=== PATIENT | female | born 1990 | race Caucasian/White ===

== ENCOUNTER 2018-08-24 10:17 | Outpatient (CLI) | payer OTHER, SELFPAY ==
[2016-01-24 07:14] VITALS: BMI 29.9
[2018-08-24 10:51] VITALS: BMI 27.8
--- NOTE | 2018-08-26 08:06 | OB.TRI.NOTE ---
History of Present Illness Date of Service: 08/24/18 Was patient seen by the physician?: No Reason For Visit: EXTENDEE MONITORING DUE TO FALL Date of Service: 08/24/18 Final LEONA: 12/20/18 Final LEONA Source: US <20 weeks Gestational age: 23 Weeks and 1 Days History of Present Illness: 28 yo female at 23 1/7 wk S/P fall. presents for monitoring. Allergies contact solution Allergy (Uncoded 01/24/16 07:43) Swelling NST - FHR Rate Baby A Baseline: 140-150s with quick variables to 100-120 Variability:: Minimal Accelerations:: None Decelerations:: Variable - quick return to baseline, under 10 sec each. to 100-120 NST Reactive:: Appropriate for gestational age, Non-Reactive FHR Category:: Category I Uterine Activity:: no UCs noted. Impression/Plan 28 yo female at 23 1/7 wk S/P fall. presents for monitoring. EFM reassuring and appropriate for EGA No regular UCs. Home after monitoring. OK to return to work.
--- NOTE | 2018-08-26 08:11 | OB.TRI.HP_ITS ---
History of Present Illness Date of Service: 08/24/18 Was patient seen by the physician?: No Reason For Visit: EXTENDEE MONITORING DUE TO FALL Date of Service: 08/24/18 Final LEONA: 12/20/18 Final LEONA Source: US <20 weeks Gestational age: 23 Weeks and 1 Days History of Present Illness: 28 yo female at 23 1/7 wk S/P fall. presents for monitoring. Allergies contact solution Allergy (Uncoded 01/24/16 07:43) Swelling NST - FHR Rate Baby A Baseline: 140-150s with quick variables to 100-120 Variability:: Minimal Accelerations:: None Decelerations:: Variable - quick return to baseline, under 10 sec each. to 100- 120 NST Reactive:: Appropriate for gestational age, Non-Reactive FHR Category:: Category I Uterine Activity:: no UCs noted. Impression/Plan 28 yo female at 23 1/7 wk S/P fall. presents for monitoring. EFM reassuring and appropriate for EGA No regular UCs. Home after monitoring. OK to return to work.
== END 2018-08-24 14:32 | disposition home or self-care (01) ==
LOC: WPOUT 10:25 → OBT 10:26
PROVIDERS: Referring Provider Obstetrics & Gynecology; Visit Provider Obstetrics & Gynecology
DX: Z04.3 Encounter for examination and observation following other accident (principal); O76 Abnormality in fetal heart rate and rhythm complicating labor and delivery; W19.XXXA Unspecified fall, initial encounter; Y93.9 Activity, unspecified; Y92.9 Unspecified place or not applicable; Z3A.23 23 weeks gestation of pregnancy
CPT/HCPCS: 59025; 59050; 99218; G0378

== ENCOUNTER 2018-12-16 07:00 | Inpatient (IN) | payer OTHER, SELFPAY ==
[2018-12-16 07:27] VITALS: BMI 30.7
[2018-12-16] MEDS: Lactated Ringers 1,000 ML 50 ML IV ×3 (07:45→13:27)
[2018-12-16] MEDS: Oxytocin 30 units/NS 500 ml 30 UNITS/500 ML IV.SOLN IV (07:58)
[2018-12-16 08:06] LABS: Absolute Lymphocyte Count 1.88 X10^3/ul (0.83-4.51); Absolute Neutrophil Count 6.4 X10^3/uL (2.0-7.7); Basophil# 0.02 X10^3/uL; Basophil% 0.2 % (0-1); Eosinophil# 0.26 X10^3/uL; Eosinophils% 2.7 % (0-5); Hematocrit 37.1 % (37-47); Hemoglobin 12.2 g/dl (12.0-15.0); Lymphocyte # 1.88 X10^3/ul (4.0); Lymphocyte % 19.6 % (19-41); Mean Corp Hgb Conc 32.9 g/gl (32-36); Mean Corpuscular Hgb 30.2 pg (27.0-32.0); Mean Corpuscular Volume 91.8 fL (81-99); Mean Platelet Vol. 11.3 fl (6.2-12.0); Monocyte% 9.4 % (0-10); Neutrophil % 66.6 % (47-70); POSITIVE COUNT NO; POSITIVE DIFFERENTIAL NO; POSITIVE MORPHOLOGY NO; Platelet Count 248 K/mm3 (150-450); RBC Distribution Width CV 13.6 % (11.6-14.6); RBC Distribution Width SD 45.2 fl (35.1-43.9); Red Blood Count 4.04 M/mm3 (4.2-5.4); White Blood Count 9.6 K/mm3 (4.4-11.0)
[2018-12-16] MEDS: Ondansetron 4 MG/2 ML Vial IV (08:53)
--- NOTE | 2018-12-16 09:34 | PN.OBGYN_ITS ---
Subjective: Feeling some contractions but not strongly. Objective: Afeb VSS FHR tracing CAT 1. - Physical Exam General: Alert, Oriented x3, Cooperative, No apparent distress Lungs: Clear to auscultation, Normal air movement Cardiovascular: Regular rate, Regular Rhythm Abdomen: Soft, Non Tender, Non-Distended, Gravid, Appropriate for Gestational Age Extremities: No edema, No Calf Tenderness Skin: No rashes Neurological: Neuro grossly intact Psych/Mental Status: Normal Affect Comment: CE /-2 Weight: 208 lb 6.4 oz Body Mass Index (BMI) 30.7 Intake and Output for Last 24 Hours 12/14/18 12/15/18 12/16/18 23:59 23:59 23:59 Intake Total 200 / 200 Output Total 100 / 100 Balance 100 / 100 Laboratory Tests Past 24 Hrs 12/16/18 12/16/18 07:45 07:45 WBC 9.6 RBC 4.04 L Hgb 12.2 Hct 37.1 MCV 91.8 MCH 30.2 MCHC 32.9 RDW 13.6 RDW Differential 45.2 H Plt Count 248 MPV 11.3 Immature Gran % (Auto) 1.500 H Neut % (Auto) 66.6 Lymph % (Auto) 19.6 [place] % (Auto) 9.4 Eos % (Auto) 2.7 Baso % (Auto) 0.2 Absolute Neuts (auto) 6.4 Absolute Lymphs (auto) 1.88 Total Counted Not Reportable Blood Type O POSITIVE Antibody Screen NEGATIVE Medical Necessity - Tobacco Use Smoking Status: Never smoker Assessment/Plan AROM performed with clear fluid noted. Will start ampicillin for GBS prophylaxis. Continue pitocin induction.
[2018-12-16] MEDS: fentaNYL-bupivacaine (epidural) 100 ML BAG EPIDURAL (12:01)
[2018-12-16] MEDS: Oxytocin 30 units/NS 500 ml 30 UNITS/500 ML IV.SOLN 334 UNITS IV (16:00)
--- NOTE | 2018-12-16 16:12 | PCM.OPRPT ---
Vaginal Delivery Maternal Presentation: Elective Induction 39+ weeks admitted for scheduled induction of labor Method of Induction: Pitocin Amniotic Membrane Rupture Type: Artificial Rupture of Membrane time: 1030 Amniotic Fluid Description: Clear Final LEONA: 12/20/18 Final LEONA Source: US <20 weeks Gestational age: 39 Weeks and 3 Days Date of Procedure: 12/16/18 Pre-Operative Diagnosis: Labor Post-Operative Diagnosis: same Surgery/ Procedure Performed: Spontaneous Vaginal Delivery Anesthesiologist: Scott Buenrostro Type of Anesthesia: Epidural Description of Procedure: Progressed to FFD pushed for less than 15 minutes to deliver a live female with apgars of 9/9. Placenta delivered spontaneously intact with a centrally located 3VC. Inspection revealed a small posterior vaginal first degree tear otherwise intact. The uterus contracted well. Presentation: Vertex Placental Delivery Description: Spontaneous Placenta Disposition: [facility] Percentage of Placenta Abruption: 0 Cord Vessel Description: 3 Vessels Cord Entanglement: None Drain: Hogan to straight drain Estimated Blood Loss: 300cc Infant A gender: Female (1 minute): 9 (5 minute): 9 Episiotomy Description: None Laceration: Midline, Vaginal Extension/lac, 1st degree Medications given after delivery: IV Pitocin Complications: None
--- NOTE | 2018-12-16 16:17 | DCINST_ITS ---
Discharge Diet: No Restrictions Discharge Activity: Return to Normal Activity, May Drive, May Shower Return to work on:: 12/18/18 May shower in (days): 0 May resume sexual activity in: 6 weeks Call your doctor if your incision/area has: Sudden Increased Bleeding, Increased Pain/ Swelling, Increased Redness, Foul Smelling Discharge Call your doctor if you observe: Fever of 101 or Higher, Inability to urinate, Inability to have a bowel movement, Using more than one pad per hour, Shortness of breath, Chest pain, Calf discomfort, Uncontrolled pain Additional Instructions: If you experience any of the following, contact your healthcare provider. * Bleeding that soaks a pad every hour for 2 hours * Fever 100.4 or higher * Unrelieved incision or abdominal pain * Swelling, redness, discharge or bleeding from your incision or episiotomy site * Your incision begins to separate * Problems urinating (including inability to urinate or burning while urinating). * Visual changes * Severe headache * Flu-like symptoms * Pain or redness in one of both of your breasts * Pain, warmth, tenderness or swelling in your legs, especially the calf area * Frequent nausea and vomiting * Symptoms of depression or anxiety If you experience any of the following, call 911 or go to the nearest Emergency Room. * Chest pain * Problems breathing * Seizure activity * Partial or complete paralysis of a body part, slurred speech, weakness or drooping of the face, or a sudden inability to walk or hold your balance Allergies/Adverse Reactions: Allergies contact solution Allergy (Mild, Uncoded 12/16/18 07:27) Swelling Medications to take at Discharge Clobetasol Propionate 1 MISCELL. DAILY 01/24/16 Vit No.130/Iron/Folic [ Tablet] 1 each PO DAILY 01/24/16 Ibuprofen [Motrin] 600 mg PO Q6H PRN PRN #30 tab 12/16/18 The following prescriptions were given: Ibuprofen [Motrin] 600 mg PO Q6H PRN PRN #30 tab PRN Reason: pain or cramping Please Follow Up With: Yousuf Little MD When: 6 weeks Primary Care Physician: Care Physician,No Primary [Primary Care Provider] - Test Results: Test results from this visit will be discussed in further detail at your follow- up appointment, if applicable. Proposed Discharge Date: 12/18/18
[2018-12-16] MEDS: Oxytocin 30 units/NS 500 ml 30 UNITS/500 ML IV.SOLN 167 UNITS IV (16:34)
[2018-12-16 20:00] VITALS: BP 125/63; PULSE 99; RESP 17; TEMP 37.1
[2018-12-16] MEDS: Acetaminophen 500 MG Tablet 1000 MG PO (21:22)
[2018-12-16 23:15] VITALS: BP 110/65; PULSE 78; RESP 17
[2018-12-16] MEDS: Ibuprofen 600 MG Tablet PO (23:20)
[2018-12-17 02:34] VITALS: BP 99/71; PULSE 80; RESP 18; TEMP 36.5
[2018-12-17 06:35] VITALS: BP 97/48; PULSE 82; RESP 18; TEMP 36.2
[2018-12-17 07:07] LABS: Hematocrit 35.2 % (37-47); Hemoglobin 11.5 g/dl (12.0-15.0); Mean Corp Hgb Conc 32.7 g/gl (32-36); Mean Corpuscular Hgb 30.1 pg (27.0-32.0); Mean Corpuscular Volume 92.1 fL (81-99); Mean Platelet Vol. 11.2 fl (6.2-12.0); Platelet Count 224 K/mm3 (150-450); RBC Distribution Width CV 13.9 % (11.6-14.6); RBC Distribution Width SD 47.1 fl (35.1-43.9); Red Blood Count 3.82 M/mm3 (4.2-5.4); White Blood Count 12.5 K/mm3 (4.4-11.0)
[2018-12-17 07:12] LABS: Scan Indicated on CBC? Y/N NO
--- NOTE | 2018-12-17 07:59 | PCM.PN.OB ---
Subjective: Afeb VSS Hgb stable on PP day#1. Objective: Afeb VSS - Physical Exam General: Alert, Oriented x3, Cooperative, No apparent distress Abdomen: Soft, Non Tender, Non-Distended Extremities: No edema Skin: No rashes Neurological: Neuro grossly intact Psych/Mental Status: Normal Affect Comment: Lochia light Vital Signs Temp Pulse Resp BP 97.1 F L 82 18 97/48 L 12/17/18 06:35 12/17/18 06:35 12/17/18 06:35 12/17/18 06:35 Oxygen Delivery Method Room Air Weight: 208 lb 6.4 oz Body Mass Index (BMI) 30.7 Intake and Output for Last 24 Hours 12/15/18 12/16/18 12/17/18 23:59 23:59 23:59 Intake Total 2500 / 2500 Output Total 3750 / 3750 Balance -1250 / -1250 Laboratory Tests Past 24 Hrs 12/16/18 12/16/18 12/17/18 07:45 07:45 06:30 WBC 9.6 12.5 H RBC 4.04 L 3.82 L Hgb 12.2 11.5 L Hct 37.1 35.2 L MCV 91.8 92.1 MCH 30.2 30.1 MCHC 32.9 32.7 RDW 13.6 13.9 RDW Differential 45.2 H 47.1 H Plt Count 248 224 MPV 11.3 11.2 Immature Gran % (Auto) 1.500 H Neut % (Auto) 66.6 Lymph % (Auto) 19.6 [place] % (Auto) 9.4 Eos % (Auto) 2.7 Baso % (Auto) 0.2 Absolute Neuts (auto) 6.4 Absolute Lymphs (auto) 1.88 Total Counted Not Reportable Blood Type O POSITIVE Antibody Screen NEGATIVE Medical Necessity - Tobacco Use Smoking Status: Never smoker Assessment/Plan Doing well on PP day#1. Hgb stable. Would like discharge home after 24 hours post delivery. If baby cleared by peds will discharage to home. Home going instructions and warnings given.
--- NOTE | 2018-12-17 08:01 | PCM.DC.SUM ---
Discharge Date and Diagnosis Date of Admission: 12/16/18 Date of Discharge: 12/17/18 - Primary Discharge Diagnosis S/P Hospital Course and Treatment Operations: None Procedures: - - Pitocin induction, epidural, Summary of Care Provided: The patient is a 28 year old F [admitted for elective induction of labor. Progressed to FD and had uncomplicated vaginal delivery. Discharged home on PP day#1. - Physical Exam Vital Signs Temp Pulse Resp BP 97.1 F L 82 18 97/48 L 12/17/18 06:35 12/17/18 06:35 12/17/18 06:35 12/17/18 06:35 Oxygen Delivery Method Room Air Weight: 208 lb 6.4 oz Body Mass Index (BMI) 30.7 Intake and Output for Last 24 Hours 12/15/18 12/16/18 12/17/18 23:59 23:59 23:59 Intake Total 2500 / 2500 Output Total 3750 / 3750 Balance -1250 / -1250 Laboratory Tests Past 24 Hrs 12/16/18 12/16/18 12/17/18 07:45 07:45 06:30 WBC 9.6 12.5 H RBC 4.04 L 3.82 L Hgb 12.2 11.5 L Hct 37.1 35.2 L MCV 91.8 92.1 MCH 30.2 30.1 MCHC 32.9 32.7 RDW 13.6 13.9 RDW Differential 45.2 H 47.1 H Plt Count 248 224 MPV 11.3 11.2 Immature Gran % (Auto) 1.500 H Neut % (Auto) 66.6 Lymph % (Auto) 19.6 [place] % (Auto) 9.4 Eos % (Auto) 2.7 Baso % (Auto) 0.2 Absolute Neuts (auto) 6.4 Absolute Lymphs (auto) 1.88 Total Counted Not Reportable Blood Type O POSITIVE Antibody Screen NEGATIVE Discharge Diet: No Restrictions Discharge Activity: Return to Normal Activity, May Drive, May Shower Return to work on:: 12/18/18 May shower in (days): 0 May resume sexual activity in: 6 weeks Call your doctor if your incision/area has: Sudden Increased Bleeding, Increased Pain/ Swelling, Increased Redness, Foul Smelling Discharge Call your doctor if you observe: Fever of 101 or Higher, Inability to urinate, Inability to have a bowel movement, Using more than one pad per hour, Shortness of breath, Chest pain, Calf discomfort, Uncontrolled pain Home Medications: Medications to take at Discharge Clobetasol Propionate 1 MISCELL. DAILY 01/24/16 Vit No.130/Iron/Folic [ Tablet] 1 each PO DAILY 01/24/16 Ibuprofen [Motrin] 600 mg PO Q6H PRN PRN #30 tab 12/16/18 Following Prescrptions Were Given to Patient: Ibuprofen [Motrin] 600 mg PO Q6H PRN PRN #30 tab PRN Reason: pain or cramping Primary Care Physician: Care Physician,No Primary [Primary Care Provider] - Please Follow Up With: Yousuf Little MD When: 6 weeks Disposition: Home Minutes spent on discharge:: 15 Patient Condition:: Good Medical Necessity - Tobacco Use Smoking Status: Never smoker Meaningful Use Info Meaningful Use Diagnoses (Choose all that apply): None applicable
[2018-12-17 09:00] VITALS: BP 110/69; PULSE 81; RESP 16; TEMP 35.9
[2018-12-17] MEDS: Ibuprofen 600 MG Tablet PO ×3 (09:06→23:52)
[2018-12-17 11:00] VITALS: BP 96/56; PULSE 77; RESP 18; TEMP 36.6
[2018-12-17] MEDS: Acetaminophen 500 MG Tablet 1000 MG PO (14:01)
[2018-12-17 16:27] VITALS: BP 102/66; PULSE 70; RESP 16; TEMP 36.4
[2018-12-17 20:30] VITALS: BP 104/75; PULSE 76; RESP 16; TEMP 36.9
[2018-12-18 02:15] VITALS: BP 109/72; PULSE 72; RESP 16; TEMP 36.5
[2018-12-18 08:07] VITALS: BP 116/73; PULSE 74; RESP 18; TEMP 36.6
--- NOTE | 2018-12-18 08:17 | PCM.PN.OB ---
Subjective: Doing well No complaints Objective: Afeb VSS - Physical Exam General: Alert, Oriented x3, Cooperative, No apparent distress Lungs: Clear to auscultation, Normal air movement Abdomen: Soft, Non Tender, Non-Distended, - - Fundus firm nontender Extremities: No edema Neurological: Neuro grossly intact Psych/Mental Status: Normal Affect Comment: Lochia light Vital Signs Temp Pulse Resp BP 97.8 F 74 18 116/73 12/18/18 08:07 12/18/18 08:07 12/18/18 08:07 12/18/18 08:07 Oxygen Delivery Method Room Air Weight: 208 lb 6.4 oz Body Mass Index (BMI) 30.7 Intake and Output for Last 24 Hours 12/16/18 12/17/18 12/18/18 23:59 23:59 23:59 Intake Total 2500 / 2500 Output Total 3750 / 3750 Balance -1250 / -1250 Medical Necessity - Tobacco Use Smoking Status: Never smoker Assessment/Plan Cleared for discharge home today. Discharge instructions given.
[2018-12-18] MEDS: Ibuprofen 600 MG Tablet PO (12:02)
[2018-12-18 12:21] VITALS: BP 116/72; PULSE 78; RESP 18; TEMP 36.5
--- NOTE | 2018-12-22 16:52 | NURSING ---
No answer on follow up call , voicemail left.
== END 2018-12-18 12:55 | disposition home or self-care (01) | DRG 807 ==
PROVIDERS: Admitting Provider Obstetrics & Gynecology; Referring Provider Obstetrics & Gynecology; Visit Provider Obstetrics & Gynecology
DX: O99.824 Streptococcus B carrier state complicating childbirth (principal); Z37.0 Single live birth; O70.0 First degree perineal laceration during delivery; Z3A.39 39 weeks gestation of pregnancy
CPT/HCPCS: 59025; 59050; 85025; 85027; 86850; 86900; 99218; J7120; G0378; J0290; J2405

== ENCOUNTER → 2020-06-14 15:06 | Outpatient (CLI) | payer BC, SELFPAY ==
[2020-06-14 15:02] VITALS: BMI 27.0
[2020-06-14 15:25] LABS: Absolute Lymphocyte Count 1.62 X10^3/uL (0.83-4.51); Absolute Neutrophil Count 4.4 X10^3/uL (2.0-7.7); Basophil# 0.04 X10^3/uL; Basophil% 0.6 % (0-1); Eosinophil# 0.24 X10^3/uL; Eosinophils% 3.4 % (0-5); Hematocrit 36.7 % (37-47); Hemoglobin 12.1 g/dL (12.0-15.0); Lymphocyte # 1.62 X10^3/ul (4.0); Lymphocyte % 23.1 % (19-41); Mean Corpuscular Hgb 30.4 pg (27.0-32.0); Mean Corpuscular Volume 92.2 fL (81-99); Mean Platelet Vol. 10.8 fl (6.2-12.0); NRBC Flagged by Analyzer 0 % (0-5); Neutrophil # 4.38 X10^3/uL (2.7-7.7); Neutrophil % 62.5 % (47-70); Platelet Count 205 K/mm3 (150-450); RBC Distribution Width CV 13.2 % (11.6-14.6); RBC Distribution Width SD 44.4 fl (35.1-43.9); Red Blood Count 3.98 M/mm3 (4.2-5.4)
[2020-06-14 15:57] LABS: Thyroid Stim Hormone (TSH) 8.43 uIU/mL (0.358-3.74)
[2020-06-14 17:41] LABS: Amphetamine Urine VISTA NEGATIVE (<1000 ng/mL); Barbiturate Urine VISTA NEGATIVE (< 200 ng/mL); Benzodiazepine Urine VISTA NEGATIVE (< 200 ng/mL); Cocaine Urine VISTA NEGATIVE (< 300 ng/mL); Ecstacy Urine VISTA NEGATIVE (< 500 ng/mL); Methadone Urine VISTA NEGATIVE (< 300 ng/mL); PCP Urine VISTA NEGATIVE (< 25 ng/mL); THC Urine VISTA NEGATIVE (< 50 ng/mL); Vista UDS pH Range 6
[2020-06-15 02:34] LABS: Rapid Plasmin Reagin (RPR) NONREACTIVE (NONREACTIVE)
[2020-06-15 09:00] LABS: HIV - WCH Non-Reactive (Nonreactive); Hepatitis B Surface Antigen Non-Reactive (Nonreactive); Hepatitis C Antibody Non-Reactive (Nonreactive); Rubella IgG Reactive (Nonreactive)
[2020-06-17 03:06] LABS: Chlamydia By Nucleic Acid AMP Negative (Negative)
[2020-06-17 15:08] LABS: Gonococcus By Nucleic Acid AMP Negative (Negative)
== END ==
PROVIDERS: Referring Provider Obstetrics & Gynecology; Visit Provider Obstetrics & Gynecology
DX: Z34.90 Encounter for supervision of normal pregnancy, unspecified, unspecified trimester (principal)
CPT/HCPCS: 36415; 80307; 84443; 85025; 86592; 86703; 86762; 86803; 86850; 86900; 86901; 87086; 87088; 87340; 87491; 87591

== ENCOUNTER → 2020-06-20 16:29 | Outpatient (CLI) | payer BC, SELFPAY ==
[2020-06-20 15:41] VITALS: BMI 26.6
[2020-06-20 18:35] LABS: ALB/GLOB Ratio 0.9 RATIO (0.9-2.4); AST(SGOT) 12 U/L (15-37); Alanine Aminotransfer ALT/SGPT 16 U/L (13-56); Albumin, Serum 3.7 g/dL (3.2-5.0); Alkaline Phosphatase 62 U/L (45-117); Anion Gap 8 (5-15); BUN 7 mg/dL (7-18); BUN/Creat Ratio 14.9 RATIO (10-20); Calcium,Total 8.5 mg/dL (8.5-10.1); Chloride 104 mmol/L (98-107); Creatinine, Serum 0.47 mg/dL (0.55-1.02); EST Glomerular Filtration Rate 165 mL/min (>60); Est Glom Filt Rate - Afr Amer 200 mL/min (>60); Free T3 2.6 pg/mL (2.18-3.98); Globulin 3.9 g/dL (2.2-4.2); Glucose 74 mg/dL (74-106); Potassium 3.5 mmol/L (3.5-5.1); Protein, Total 7.6 g/dL (6.4-8.2); Sodium Level 137 mmol/L (136-145); T4 Free Direct 0.77 ng/dL (0.76-1.46); Thyroid Stim Hormone (TSH) 6.69 uIU/mL (0.358-3.74)
[2020-06-22 16:09] LABS: Thyroid Peroxidase AB > 600 IU/mL (0-34)
[2020-06-22 18:28] LABS: Thyroglobulin Antibody < 1.0 IU/mL (0.0-0.9)
== END ==
PROVIDERS: PCP Internal Medicine; Referring Provider Internal Medicine; Visit Provider Internal Medicine
DX: O99.281 Endocrine, nutritional and metabolic diseases complicating pregnancy, first trimester (principal); E07.9 Disorder of thyroid, unspecified; Z3A.10 10 weeks gestation of pregnancy
CPT/HCPCS: 36415; 80053; 84439; 84443; 84481; 86376; 86800

== ENCOUNTER → 2020-06-28 09:17 | Outpatient (CLI) | payer BC, SELFPAY ==
[2020-06-20 15:41] VITALS: BMI 26.6
--- NOTE | 2020-06-28 09:20 | US_ITS ---
STUDY: THYROID ULTRASOUND REASON FOR EXAM: Female, 29 years old. ABNORMAL THYROID TECHNIQUE: Ultrasound evaluation of the thyroid was performed with real-time and static montemayor-scale imaging. COMPARISON: None. FINDINGS: RIGHT LOBE: The right lobe of the thyroid gland is enlarged and measures 5.7 cm x 2.15 x 2.7 cm. There is a heterogeneous echotexture. Multiple hypoechoic nodules are seen throughout the lobe. The largest is in the lower pole and measures 1.8 cm x 1.8 cm by 1.2 cm. This is a solid nodule with perinodular vascularity. A biopsy is recommended. LEFT LOBE: The left lobe of the thyroid gland is enlarged and measures 5.6 x 2 x 2.9 cm x 3.2 cm. There is a heterogeneous echotexture. Multiple nodules are seen. The largest measures 1.6 cm x 1.87 x 1.5 cm. This is in the lower pole is a complex cystic nodule. Biopsy is recommended. ISTHMUS: The isthmus measures 5 mm. The regional lymph nodes are normal. US/Thyroid IMPRESSION: Heterogeneous enlargement of the thyroid gland with bilateral dominant nodules as described. Biopsy is recommended. Electronically Signed: Zane Bain, at 14:53 EST , Service support ,
== END ==
PROVIDERS: PCP Internal Medicine; Referring Provider Internal Medicine; Visit Provider Internal Medicine
DX: E07.9 Disorder of thyroid, unspecified (principal); R94.6 Abnormal results of thyroid function studies
CPT/HCPCS: 76536

== ENCOUNTER → 2020-07-28 11:06 | Outpatient (CLI) | payer BC, SELFPAY ==
[2020-07-28 10:04] VITALS: BMI 27.4
[2020-07-28 13:11] LABS: Free T3 2.5 pg/mL (2.18-3.98); Thyroid Stim Hormone (TSH) 3.77 uIU/mL (0.358-3.74)
--- NOTE | 2020-07-28 15:20 | ASPS_PTH ---
PATIENT: DAVID WANG LOC: [facility] U#:[id number] AGE/SX: 34/F ROOM: RE07/28/[address]: Dr. Luis Carlos Puentes MD : 1990 BED: DIS: SPEC #: [id number] RECD: 07/28/20 16:02 STATUS: EM REQ #: [id number] YOJANA: 07/28/20 15:[address]: Ramos Hall DEPT: CYTOLOGY RECD BY: Mena Lee ENTERED: 07/31/20 10:06 SP TYPE: ASPIRATION OTHR DR: MD Dr. Ramos Gandhi MD Dr. Toni King, MD Tissues: A - Thyroid gland, NOS B - Thyroid gland, NOS Procedures: Special Stain Group II Cytology Other Comments: @ Ordering doctor for SSII edited from to @ by PRISCILA at 07/31/20 1032 @ Ordering doctor for CYOTHER edited from to @ by PRISCILA at 07/31/20 1032 @ Submitting doctor edited from to @ sadiq FRANCOIS at 07/31/20 1032 HEADER OPERATION: Bilateral thyroid FNA PRE-OP DIAGNOSIS: Bilateral thyroid nodules TISSUE SUBMITTED: A - Right thyroid slides x6, B - Left thyroid slides x4, C - Left thyroid fluid for cytology DIAGNOSIS CYTOLOGY A. Right thyroid nodule, FNA (smears): Consistent with benign follicular/colloid nodule. Adequate for evaluation. B. Left thyroid nodule, FNA (smears): A few atypical follicular cells of undetermined significance in the background of cystic follicular nodule. Adequate for evaluation. See comment. C. Left thyroid nodule fluid, FNA (cytospin and cell block): Consistent with cyst contents. See comment. SJ:rg 08/01/2020 COMMENT C. The specimen predominantly consists of macrophages. Correlation with clinical, radiologic findings and appropriate follow up are necessary. Case has been reviewed in consultation with Dr. Dinh who concurs with the above diagnosis. IDC:AM CYTOLOGY STUDY Slides are reviewed. CYTOLOGY GROSS A - Received are six smears labeled with the patient's name and designated per the requisition as right thyroid. Submitted for staining. B - Received are four smears labeled with the patient's name and designated per the requisition as left thyroid. Submitted for staining. C - Received is 1 ml of red, cloudy fluid labeled with the patient's name and and designated per the requisition as left thyroid. Submitted for cytology preparation including cell block. / chrystal 07/31/2020 TC:5 CPT: 57383 x2, 06967, 96191
== END ==
PROVIDERS: PCP Internal Medicine; Referring Provider Internal Medicine Endocrinology, Diabetes & Metabolism; Visit Provider Internal Medicine Endocrinology, Diabetes & Metabolism
DX: E04.2 Nontoxic multinodular goiter (principal)
CPT/HCPCS: 36415; 84439; 84443; 84481; 88161; 88313

== ENCOUNTER → 2020-09-08 14:58 | Outpatient (CLI) | payer BC, SELFPAY ==
[2020-09-08 14:25] VITALS: BMI 28.3
[2020-09-08 17:03] LABS: T4 Free Direct 1.16 ng/dL (0.76-1.46); Thyroid Stim Hormone (TSH) 0.56 uIU/mL (0.358-3.74)
== END ==
PROVIDERS: PCP Internal Medicine; Visit Provider Internal Medicine Endocrinology, Diabetes & Metabolism
DX: O99.280 Endocrine, nutritional and metabolic diseases complicating pregnancy, unspecified trimester (principal); E03.9 Hypothyroidism, unspecified; Z3A.00 Weeks of gestation of pregnancy not specified
CPT/HCPCS: 36415; 84439; 84443

== ENCOUNTER → 2020-10-04 11:19 | Outpatient (CLI) | payer BC, SELFPAY ==
[2020-09-08 14:25] VITALS: BMI 28.3
[2020-10-04 11:49] LABS: Absolute Lymphocyte Count 1.27 X10^3/uL (0.83-4.51); Absolute Neutrophil Count 5.1 X10^3/uL (2.0-7.7); Basophil# 0.05 X10^3/uL; Basophil% 0.7 % (0-1); Eosinophil# 0.25 X10^3/uL; Eosinophils% 3.3 % (0-5); Hematocrit 34.5 % (37-47); Hemoglobin 10.9 g/dL (12.0-15.0); Lymphocyte # 1.27 X10^3/ul (4.0); Lymphocyte % 16.9 % (19-41); Mean Corp Hgb Conc 31.6 g/dL (32-36); Mean Corpuscular Hgb 29.6 pg (27.0-32.0); Mean Corpuscular Volume 93.8 fL (81-99); Mean Platelet Vol. 11.2 fl (6.2-12.0); Monocyte# 0.72 X10^3/uL; Monocyte% 9.6 % (0-10); NRBC Flagged by Analyzer 0 % (0-5); Neutrophil % 67.6 % (47-70); Platelet Count 206 K/mm3 (150-450); RBC Distribution Width CV 12.4 % (11.6-14.6); RBC Distribution Width SD 42.8 fl (35.1-43.9); Red Blood Count 3.68 M/mm3 (4.2-5.4); White Blood Count 7.5 K/mm3 (4.4-11.0)
[2020-10-04 12:00] LABS: Glucose Challenge Gest 1H 50g 89 mg/dL (70-140)
== END ==
PROVIDERS: PCP Internal Medicine; Referring Provider Obstetrics & Gynecology; Visit Provider Obstetrics & Gynecology
DX: Z34.90 Encounter for supervision of normal pregnancy, unspecified, unspecified trimester (principal); Z13.1 Encounter for screening for diabetes mellitus
CPT/HCPCS: 36415; 82950; 85025

== ENCOUNTER → 2020-11-17 16:24 | Outpatient (CLI) | payer BC, SELFPAY ==
[2020-11-17 15:38] VITALS: BMI 30.2
[2020-11-17 17:10] LABS: Absolute Lymphocyte Count 2.21 X10^3/uL (0.83-4.51); Absolute Neutrophil Count 6.9 X10^3/uL (2.0-7.7); Basophil# 0.07 X10^3/uL; Basophil% 0.6 % (0-1); Eosinophil# 0.31 X10^3/uL; Eosinophils% 2.8 % (0-5); Hematocrit 34.8 % (37-47); Hemoglobin 10.6 g/dL (12.0-15.0); Lymphocyte # 2.21 X10^3/ul (0.83-4.51); Lymphocyte % 20.3 % (19-41); Mean Corp Hgb Conc 30.5 g/dL (32-36); Mean Corpuscular Hgb 28.2 pg (27.0-32.0); Mean Corpuscular Volume 92.6 fL (81-99); Mean Platelet Vol. 11.1 fl (6.2-12.0); Monocyte# 1.17 X10^3/uL; Monocyte% 10.7 % (0-10); NRBC Flagged by Analyzer 0 % (0-5); Neutrophil # 6.93 X10^3/uL (2.7-7.7); Neutrophil % 63.8 % (47-70); Platelet Count 281 K/mm3 (150-450); RBC Distribution Width CV 12.6 % (11.6-14.6); Red Blood Count 3.76 M/mm3 (4.2-5.4); White Blood Count 10.9 K/mm3 (4.4-11.0)
[2020-11-17 17:35] LABS: T4 Free Direct 0.85 ng/dL (0.76-1.46); Thyroid Stim Hormone (TSH) 3.12 uIU/mL (0.358-3.74)
== END ==
PROVIDERS: PCP Internal Medicine; Referring Provider Obstetrics & Gynecology; Visit Provider Obstetrics & Gynecology
DX: E06.3 Autoimmune thyroiditis (principal)
CPT/HCPCS: 36415; 84439; 84443; 85025

== ENCOUNTER → 2020-12-15 | Outpatient (CLI) | payer BC, SELFPAY ==
[2020-12-15 13:38] VITALS: BMI 31.0
== END | disposition home or self-care (01) ==
LOC: LABSPEC 16:47
PROVIDERS: PCP Internal Medicine; Visit Provider Obstetrics & Gynecology
DX: Z34.83 Encounter for supervision of other normal pregnancy, third trimester (principal)
CPT/HCPCS: 87077; 87081; 87186

== ENCOUNTER → 2021-01-05 18:27 | Outpatient (CLI) | payer BC, SELFPAY ==
[2021-01-05 10:03] VITALS: BMI 31.0
--- NOTE | 2021-01-05 18:34 | US_ITS ---
STUDY: Ultrasound OB Biophysical Profile REASON FOR EXAM: Female, 30 years old WELL BEING -- DEC MVMT TECHNIQUE: Transabdominal PRIOR ULTRASOUND: None. FINDINGS: There is a single intrauterine fetus. The fetus is in a cephalic presentation. There is demonstrated cardiac activity with a heart rate of 157 bpm. There is a normal amniotic fluid volume. The largest amniotic fluid pocket measures 11.7 cm. The amniotic fluid index (SARAHI) is 17.1 cm. The placenta is anterior. BIOPHYSICAL PROFILE (BPP): 02/11 -- Breathin/2. -- Movement: 2/2. -- Tone: 2/2. --SARAHI: 2/2. US/Biophysical Prof W/O Non Stres IMPRESSION: Normal BPP. Electronically Signed: Mikel Duron MD at 19:48 EDT Tel , Service support ,
== END ==
PROVIDERS: PCP Internal Medicine; Visit Provider Obstetrics & Gynecology
DX: O36.8190 Decreased fetal movements, unspecified trimester, not applicable or unspecified (principal); Z3A.00 Weeks of gestation of pregnancy not specified
CPT/HCPCS: 76819

== ENCOUNTER 2021-01-06 07:00 | Inpatient (IN) | payer BC, SELFPAY ==
[2021-01-05 10:03] VITALS: BMI 31.0
[2021-01-06] VITALS (39 sets, daily range): BP systolic 94–125; BP diastolic 50–73; PULSE 71–100; RESP 14–16; TEMP 36.3–37.7; O2SAT 97–100; BMI 31.2
--- NOTE | 2021-01-06 07:29 | HP.PCM_ITS ---
History and Physical Date of Admission: 01/06/21 [facility]'s [id number] [place] [address] [phone] OFFICE VISITDate of Service: 01/05/21 MR#:[id number]:[id number]: DAVID WANG ERep #:[id number] Provider:Dr. Bette Mike, EVERTge/Sex: 30/F [facility] Vital Signs 01/05/21 10:02 01/05/21 10:03 Height 5 ft 9 in Weight: 212 lb BMI 31.3 31.0 BP 102/70 Intake Visit Reasons: 39 WK OB Chief Complaint: est ob Visitor Services Assistant Required: No Is patient in pain?: No Allergies contact solution Allergy (Mild, Uncoded 12/15/20 13:37) Swelling Medications clobetasol 1 MISCELL. DAILY 01/24/16 [History Confirmed 01/05/21] vit no.[id number] 1 ea PO DAILY 01/24/16 [History Confirmed 01/05/21] lactobacillus combination no.8 3 billion cell capsule 3,000 mmu cells PO DAILY 06/20/20 [History Confirmed 01/05/21] levothyroxine 125 mcg tablet 125 mcg PO DAILY #30 tab 07/28/20 [Rx Confirmed 01/05/21] Last Menstral Period: 04/02/20 Zika: Zika virus screening: Negative : No PFSH PFSH Medical History H/O hemorrhage, currently Rhea's thyroiditis History of anemia Hypothyroid in , antepartum Multiple thyroid nodules Supervision of normal Thyroid dysfunction Thyroid nodule Surgical History Status post fine needle aspiration (~07/2020) Family History Grandmother Diabetes Myocardial infarction, Onset Age: 72 Grandfather Diabetes Father Hypertension Grandmother Heart disease Aunt Thyroid disorder Social History adopted: No household members: family housing: house number of children: 2 current occupational status: employed current occupation: [employer] sexually active: Yes Smoking Status: Never smoker second hand exposure: No alcohol intake: never substance use type: does not use seatbelt use: always do you feel safe at home: Yes additional social history: - Kingsley Pregancy History 3 Elective abortions Hx Para 2 Spontaneous abortions Hx # Term Pregnancies Ectopic pregnancies Hx # Pregnancies Multiple births # of living children 2 Past Pregnancies Del. Date Name GA/Weeks Outcome Route Bth Weight Gen Labor Lgth Anesthesia Del Locatn Provider FOB 01/24/16 Pardeep 41 live - full term 8lbs 12oz Female 10 hours epidural [facility] Dr. Little 12/16/18 Katherin 39 live - full term 7 lbs 13oz Female 9 hours epidural [facility] Dr. Little Delivery Date: 01/24/16 PPH- had to get IM methergine Izabella Almazan Delivery Date: 12/16/18 no complications Izabella Almazan HPI 39 WK OB Details: DAVID WANG is a 30 year old who presents for routine OB visit. Upon evaluation she is having persistent decreased movement over the last few days, and had borderline NST in the office. OB Visit LEONA Calculator Estimated Delivery Date Method Current Current Estimate 01/07/21 LMP (Certain) 39w 5d Other Estimates 01/08/21 Ultrasound #1 39w 4d Expected Delivery Route/Plan Labor Preferences- labor support person: Kingsley labor intervention preferences: open to standard interventions pain management options preferred: epidural, may try to go natural but has had epidural with other deliveries cut cord/dad catch: both : [] PP control planned: [] discussed possible routes of delivery and associated risks: discussed possible delivery modalities and possible indications for each including R/B/A of , VAVD, FAVD, and CS. questions answered. special requests: [] Specific Issue/Plans flu vaccine: given tdap vaccine: given rhogam: na LARC form signed: declined movement and labor precautions reviewed. Problem list reviewed and updated with the most current plan of care details and appropriate orders placed. Relevant counseling for the gestational age provided. Continue routine care and follow up unless otherwise noted in visit notes/problem list details Initial Weight: 180 lb Date EGA Weight BP Urine Prot Glucose FHR FuHt Pres Dilation Effaced St Visit Note 06/14/20 10w 3d 180 lb 8 oz (+8 oz) 120/80 160 GP - CRL 30mm consistent with LMP. 07/12/20 14w 3d 182 lb 4 oz (+2 lb 4 oz) 118/80 Negative Negative 170 GP - no cramping or bleeding. PRR. Discussed COVID vaccine in . 08/10/20 18w 4d 187 lb (+7 lb) 120/74 Negative Negative 139 MH-No Vb, LOF. US anatomy next week 09/08/20 22w 5d 192 lb (+12 lb) 102/58 Negative Negative 140 SM- no vb lof good fm no regular ctx 10/04/20 26w 3d 198 lb (+18 lb) 102/70 Negative Negative 145 26 GP - no LOF, VB, DFM, ctx. Passed GCT. TDAP given. Discussed anemia. Considering Sirael for name, but undecided because likes name with clear gender. 10/20/20 28w 5d 202 lb 2 oz (+22 lb 2 oz) 100/68 Negative Negative 145 28 GP - no LOF, VB, DFM, ctx. LARC form signed. Going to a concert tonight with another couple. 11/02/20 30w 4d 204 lb 8 oz (+24 lb 8 oz) 130/80 Negative Negative 140 30 GP - no ctx, LOF, VB, DFM. Denies complaints. 11/17/20 32w 5d 207 lb (+27 lb) 114/66 Negative Negative 140 33 SM- no vb lof good fm no regula rctx tsh and t4 ordered, cbc 12/01/20 34w 5d 210 lb (+30 lb) 118/62 Negative Negative 140 34 GP - no LOF, VB, DFM, ctx. Discussed labor preferences and routes of delivery 12/15/20 36w 5d 210 lb 6 oz (+30 lb 6 oz) 110/70 140 36 Cephalic 2 50 -2 GP - no LOF, VB, DFM, ctx. GBS today. Daughter's birthday is this weekend. 12/21/20 37w 4d 212 lb (+32 lb) 112/76 145 37 Unstable SM- no vb lof good fm no regular ctx 12/28/20 38w 4d 211 lb 2 oz (+31 lb 2 oz) 114/70 Negative Negative 135 38 Cephalic 3 50 -3 GP - no LOF, VB, dFM, ctx. Membranes swept today. 01/05/21 39w 5d 212 lb (+32 lb) 102/70 Negative Negative 140 4 50 -2 SM- no vb lof dec fm the last few days, minimal today. irregular ctx ACOG First Trimester First Trimester: Desire for , Alcohol, Tobacco Cessation, Illicit/Recreational Drug/Substance Use, Intimate Partner Violence, Barriers to care, Unstable Housing, Communication Barriers, Environmental/Work Hazards, Anticipated Course of Care, Toxoplasmosis Precations, Use of Any medications, Sexual activity, Exercise, Dental Care, Sauna/Hot tub use, Seat Belt use, Childbirth classes/Hospital facilities, , Travel, Indications for Ultrasound and Screening for Aneuploidy Second Trimester Second Trimester: Signs and Symptoms of Labor, Selecting a care provider, Reproductive Life Planning & Contreception, Care Planning, Tobacco Cessation, Depression/Anxiety and Intimate Partner Violence Third Trimester Third Trimester: Pain Management Plans, Labor support person(s), Immediate Larc, Movement Monitoring and Infant Feeding Yes ; Discussed Trial of Labor after Counseling and Discussed Circumcision preference Diagnostics Diagnostics Diagnostics: Glucose 1 Hr 50 gm 89 mg/dL (70-140) Hgb 10.6 g/dL (12.0-15.0) L Hct 34.8 % (37-47) L Details: HIV: Urine Culture: Sequential Screen: NIPT Screen: ROS Const Reports system reviewed and no additional complaints, except as documented Card Reports system reviewed and no additional complaints, except as documented Resp Reports system reviewed and no additional complaints, except as documented GI Reports system reviewed and no additional complaints, except as documented and Reports nausea Reports system reviewed and no additional complaints, except as documented Musc Reports system reviewed and no additional complaints, except as documented Exam Const General: cooperative, healthy appearing, comfortable and anxious [facility] Head: normal to inspection Nose: external nose normal Face and sinus: normal facial exam Neck Neck: normal visual inspection, full ROM and no lymphadenopathy Thyroid: thyroid normal Chest Chest palpation & inspection: normal inspection of the chest Resp Effort & Inspection: normal respiratory effort GI Inspection: normal to inspection Palpation: soft and other (gravid uterus) Other: infant vertex and appropriate size for gestational age Other: Cervical Exam: Extrem General: pedal edema Office Procedures Non-stress Test Non-Stress Test Indications for Monitoring: Yes decreased movement Heart Rate Baseline: 130 Heart Rate Variability: moderate Movement: Absent Heart Rate Accelerations: Present Decelerations: Absent Contractions: Absent Impression: Yes Reactive Non-Stress Test Category 1 (borderline criteria) Results POC Urinalysis 2 Dip (Clinic) Office Urine Glucose Negative Last Edit by Alma Delia Varghese on 01/05/21 10:05 Office Urine Protein Negative Last Edit by Alma Delia Varghese on 01/05/21 10:05 Coding Level of Care Code OB Routine Diagnoses Positive GBS test B95.1 Multiple thyroid nodules E04.2 Iron (Fe) deficiency anemia D50.9 Iron deficiency anemia type: unspecified iron deficiency 35 weeks gestation of Z3A.35 Rhea's thyroiditis E06.3 Hypothyroid in , antepartum O99.280; E03.9 H/O hemorrhage, currently O09.299 Supervision of normal Z34.83 Normal : other normal Trimester: third trimester Z3A.39 Weeks of gestation: 39 weeks Decreased movements in third trimester O36.8130 CPT Codes Non-Stress Test (65740) Assessment and Plan Assessment and Plan (1) Positive GBS test: Status: Acute Comment: PCN in labor (2) Multiple thyroid nodules: Status: Acute (3) Iron (Fe) deficiency anemia: Status: Acute Qualifiers: Iron deficiency anemia type: unspecified iron deficiency Qualified Code(s): D50.9 - Iron deficiency anemia, unspecified (4) 35 weeks gestation of : Status: Acute Comment: electronic covid test ordered 12/05/20 (5) Rhea's thyroiditis: Status: Chronic Comment: synthroid (6) Hypothyroid in , antepartum: Status: Chronic Comment: follow labs every trimester (7) H/O hemorrhage, currently : Status: Acute Comment: received IM methergine after first delivery. No issues with second (8) Supervision of normal : Status: Acute Qualifiers: Normal : other normal Trimester: third trimester Qualified Code(s): Z34.83 - Encounter for supervision of other normal , third trimester Comment: PRR LEONA 01/07/21 boy PC: Araceli Roberto Spouse: Kingsley (9) : Status: Acute Qualifiers: Weeks of gestation: 39 weeks Qualified Code(s): Z3A.39 - 39 weeks gestation of Comment: declines genetic and carrier; NL anatomy (10) Decreased movements in third trimester: Status: Acute Comment: plan IOL today Orders: Orders: OB NST Today O36.8130 Plan - Dr. Bette Mike MD: Patient presents IOL, plan management for with pitocin/AROM. Pain management: plans epidural. GBS pos- PCN planned. Management of any complications: none I have reviewed the [facility] and made any clinically relevant updates. Plan Details Other Orders: Orders: POC Urinalysis 2 Dip (Clinic) Today
[2021-01-06] MEDS: Lactated Ringers 1,000 ML 50 ML IV (07:59)
[2021-01-06 08:08] LABS: Absolute Lymphocyte Count 2.27 X10^3/uL (0.83-4.51); Absolute Neutrophil Count 6.6 X10^3/uL (2.0-7.7); Basophil# 0.05 X10^3/uL; Basophil% 0.5 % (0-1); Eosinophil# 0.26 X10^3/uL; Eosinophils% 2.5 % (0-5); Hematocrit 31.4 % (37-47); Hemoglobin 9.9 g/dL (12.0-15.0); Lymphocyte # 2.27 X10^3/ul (0.83-4.51); Lymphocyte % 21.5 % (19-41); Mean Corp Hgb Conc 31.5 g/dL (32-36); Mean Corpuscular Hgb 27.5 pg (27.0-32.0); Mean Corpuscular Volume 87.2 fL (81-99); Mean Platelet Vol. 11.2 fl (6.2-12.0); Monocyte# 1.28 X10^3/uL; Monocyte% 12.1 % (0-10); NRBC Flagged by Analyzer 0 % (0-5); Neutrophil # 6.56 X10^3/uL (2.7-7.7); Neutrophil % 62.2 % (47-70); Platelet Count 335 K/mm3 (150-450); RBC Distribution Width CV 13.3 % (11.6-14.6); RBC Distribution Width SD 42.1 fl (35.1-43.9); White Blood Count 10.6 K/mm3 (4.4-11.0)
[2021-01-06] MEDS: Oxytocin 30 units/NS 500 ml 30 UNITS/500 ML IV.SOLN IV (09:07)
[2021-01-06] MEDS: Lactated Ringers 500 ML 999 ML IV ×2 (11:44→12:37)
[2021-01-06] MEDS: fentaNYL-bupivacaine (epidural) 100 ML BAG EPIDURAL (12:50)
[2021-01-06] MEDS: Lactated Ringers 1,000 ML 200 ML IV (15:24)
[2021-01-06] MEDS: Oxytocin 30 units/NS 500 ml 30 UNITS/500 ML IV.SOLN 334 UNITS IV (16:50)
[2021-01-06] MEDS: Methylergonovine 0.2 MG/ML Ampul IM (16:56)
--- NOTE | 2021-01-06 17:01 | OP.PCM_ITS ---
Assessment & Plan (1) Decreased movements in third trimester: COMMENT: plan IOL today (2) Positive GBS test: COMMENT: PCN in labor (3) 35 weeks gestation of : COMMENT: electronic covid test ordered 12/05/20 (4) Hypothyroid in , antepartum: COMMENT: follow labs every trimester (5) Supervision of normal : QUALIFIERS: Normal : other normal Trimester: third trimester Qualified Code(s): Z34.83 - Encounter for supervision of other normal , third trimester COMMENT: PRR LEONA 01/07/21 boy PC: Araceli Roberto Spouse: Kingslye (6) : QUALIFIERS: Weeks of gestation: 39 weeks Qualified Code(s): Z3A.39 - 39 weeks gestation of COMMENT: declines genetic and carrier; NL anatomy (7) Vaginal delivery: COMMENT: IOL dec fm SM 39 boy phu Maternal Data Information LEONA Calculator Estimated Delivery Date Method Current WG Current Estimate 01/07/21 LMP (Certain) 39w 6d Other Estimates 01/08/21 Ultrasound #1 39w 5d Vaginal Delivery Operative Information Date of Procedure: 01/06/21 Pre-Operative Diagnosis: IOL Post-Operative Diagnosis: same Surgery / Procedure Performed: Spontaneous Vaginal Delivery Type of Anesthesia: Epidural Special Medications: none Estimated Blood Loss: 100 Fluids Replaced: crystalloid Findings Description of Procedure: Patient began pushing and delivered the head in the MANFRED presentation. The head was delivered atraumatically . The anterior and posterior shoulders delivered without complication followed by the rest of the i nfant and the infant was placed on the maternal abdomen. Delayed cord clamping was employed for approximately 60 seconds. Cord was clamped and cut and gentle traction was applied to the cord and the placenta delivered spontaneously immediately following it was noted to be intact with three-vessel cord. The perineum and vagina were inspected and noted to have a very small first-degree perineal laceration that was repaired with a single [id number]-of-idkee 3-0 Vicryl Rapide. Patient had a history of hemorrhage and due to large size and placental size prophylactic Methergine was given.. EBL was 100 cc. Patient and infant tolerated delivery well. Presentation: RYAN Amniotic Membrane Rupture Type: Artificial Amniotic Fluid Description: Clear Placental Delivery Description: Spontaneous Placenta Disposition: [facility] Cord Vessel Description: 3 Vessels Cord Entanglement: None A Gender: Male Delayed Cord Clamping: Yes Post Vaginal Delivery Medications Given After Delivery: IV Pitocin Episiotomy Description: None Laceration: Perineal Extension/lac and 1st degree Complication Complications: None Procedures Urinary/Genital 52xxx-59xxx: [id number] Vaginal Delivery [facility]
--- NOTE | 2021-01-06 17:05 | PCM.DC ---
Discharge Instructions Diet Discharge Diet: No restrictions Activity Discharge Activity: Return to Normal Activity, May Not Drive (while taking narcotic pain medications.) and May Shower May resume sexual activity in: 4-6 weeks Dressing / Incision Call your doctor if your incision/area has: Continuous Slow Oozing, Sudden Increased Bleeding, Increased Pain/ Swelling, Increased Redness and Foul Smelling Discharge Follow Up Care Please Follow Up With: Bette Mike MD When: Call [phone] to make an appointment with your doctor in 6 weeks. If you had elevated blood pressure or 4th degree laceration, you will need to be seen in 2 weeks. Test Results: Test results from this visit will be discussed in further detail at your follow-up appointment, if applicable. Discharge Plan Admission Admit Date/Time: 01/06/21 07:00 Primary Reason for Your Visit: vaginal delivery Attending Provider: Bette Mike Primary Care Provider: Evelia Vickers Discharge Orders/Prescriptions Prescriptions: No Action Adult Probiotic 3 billion cell capsule 3,000 mmu cells PO DAILY RF: 0 vit [id number] 1 EACH tablet 1 ea PO DAILY RF: 0 clobetasol 50 ML solution 1 MISCELL. DAILY RF: 0 levothyroxine 125 mcg tablet 125 mcg PO DAILY Qty: 30 RF: 6 Referrals / Follow Up: Evelia Vickers MD [Primary Care Provider] - Bette Mike MD [STAFF PHYSICIAN] - Disposition Disposition (needs filled in before D/C Order can be placed): Home, Self Care
[2021-01-06] MEDS: 0.9% Saline Lock 10 ML Syringe IV (19:41)
[2021-01-06] MEDS: Naproxen 500 MG Tablet PO (19:41)
[2021-01-07] MEDS: Acetaminophen 500 MG Tablet 1000 MG PO ×2 (02:06→10:37)
[2021-01-07 03:19] VITALS: BP 95/52; PULSE 72; RESP 16; TEMP 36.3
--- NOTE | 2021-01-07 03:21 | NURSING ---
pt reports her BP is normally low. denies feeling dizzy or lightheaded.
[2021-01-07] MEDS: Levothyroxine 125 MCG Tablet PO (06:36)
[2021-01-07 07:54] VITALS: BP 105/63; PULSE 68; RESP 16; TEMP 36.7
[2021-01-07] MEDS: Naproxen 500 MG Tablet PO (12:43)
[2021-01-07 12:45] VITALS: BP 103/61; PULSE 58; RESP 16; TEMP 36.9
== END 2021-01-07 18:25 | disposition home or self-care (01) | DRG 807 ==
PROVIDERS: Admitting Provider Obstetrics & Gynecology; PCP Internal Medicine; Referring Provider Obstetrics & Gynecology; Visit Provider Obstetrics & Gynecology
DX: O36.8130 Decreased fetal movements, third trimester, not applicable or unspecified (principal); O70.0 First degree perineal laceration during delivery; O99.824 Streptococcus B carrier state complicating childbirth; O99.284 Endocrine, nutritional and metabolic diseases complicating childbirth; E06.3 Autoimmune thyroiditis; E04.2 Nontoxic multinodular goiter; O99.02 Anemia complicating childbirth; D50.9 Iron deficiency anemia, unspecified; Z20.822 Contact with and (suspected) exposure to COVID-19; Z79.890 Hormone replacement therapy; Z3A.39 39 weeks gestation of pregnancy; Z37.0 Single live birth
CPT/HCPCS: 59025; 59050; 85025; 86850; 86900; 86901; 87426; 99218; J7120; A4216; G0378

== ENCOUNTER → 2021-02-23 11:54 | Outpatient (CLI) | payer BC, SELFPAY ==
[2021-02-23 12:45] LABS: T4 Free Direct 1.28 ng/dL (0.76-1.46); Thyroid Stim Hormone (TSH) 0.11 uIU/mL (0.358-3.74)
[2021-02-27 16:50] LABS: HPV APTIMA, High Risk Negative (Negative)
== END ==
PROVIDERS: PCP Internal Medicine; Visit Provider Obstetrics & Gynecology
DX: E06.3 Autoimmune thyroiditis (principal); Z12.4 Encounter for screening for malignant neoplasm of cervix
CPT/HCPCS: 36415; 84439; 84443; 87624; 88175; G0145

== ENCOUNTER → 2021-03-13 14:26 | Outpatient (CLI) | payer BC, SELFPAY ==
--- NOTE | 2021-03-13 14:27 | US_ITS ---
STUDY: THYROID ULTRASOUND REASON FOR EXAM: Female, 30 years old. Rhea''s TECHNIQUE: Ultrasound evaluation of the thyroid was performed with real-time and static montemayor-scale imaging. COMPARISON: 07/28/2020 FINDINGS: RIGHT LOBE: The right lobe of the thyroid gland measures 5.9 x 2.7 x 2.4 cm. There is a heterogeneous echotexture. 1.9 x 1.9 x 1.3 cm, 0.8 x 0.8 x 0.5 cm, and 1.4 x 1.5 x 1.0 cm solid nodules with regular margins and. Nodular and intranodular DOPPLER vascularity. LEFT LOBE: The left lobe of the thyroid gland measures 5.9 x 3.1 x 3 point cm. There is a heterogeneous echotexture. 1.0 x 1.6 x 1 0 cm cystic, 0.8 x 0.8 x 0.6 cm solid, and 2.5 x 2.4 x 1.5 cm mixed cystic and solid nodules with regular margins and periventricular vascularity. ISTHMUS: The isthmus measures 7 mm. The regional lymph nodes are normal. Area of palpable lump on left. Corresponds to the area to cystic nodules. US/Thyroid IMPRESSION: Thyroid is 3 nodule in the right thyroid measures up to 1.9 cm. This is not significantly changed compared to 06/28/2020, and can be followed up with ultrasound in 2 years. Thyroid morphology consistent with given diagnosis of Rhea''s. Electronically Signed: Thanh Justin MD at 7:49 EDT Tel , Service support ,
== END ==
PROVIDERS: PCP Internal Medicine; Referring Provider Obstetrics & Gynecology; Visit Provider Obstetrics & Gynecology
DX: E06.3 Autoimmune thyroiditis (principal)
CPT/HCPCS: 76536

== ENCOUNTER → 2021-03-21 10:43 | Outpatient (CLI) | payer BC, SELFPAY ==
--- NOTE | 2021-03-21 14:20 | FLU_PTH ---
PATIENT: DAVID WANG LOC: [facility] U#:[id number] AGE/SX: 34/F ROOM: RE03/21/[address]: Dr. Ramos Hall MD : 1990 BED: DIS: SPEC #: [id number] RECD: 03/22/21 08:01 STATUS: EM MARGARITA #: [id number] YOJANA: 03/21/21 14:[address]: Ramos Hall DEPT: CYTOLOGY RECD BY: Mena Lee ENTERED: 03/22/21 13:13 SP TYPE: Fluid OTHR DR: Dr. Evelia Vickers MD Tissues: A - Thyroid gland, NOS B - Thyroid gland, NOS Procedures: Special Stain Group II Surgery Specimen Level IV Cytospin Fluid Cytology Other HEADER OPERATION: Left thyroid fine needle aspiration PRE-OP DIAGNOSIS: Left thyroid nodule TISSUE SUBMITTED: A ? FNA, left thyroid nodule fluid, B ? FNA, left thyroid x8 slides DIAGNOSIS CYTOLOGY A. Fine needle aspiration, left thyroid nodule (cytospin and cell block): Adequate for evaluation. Negative, consistent with benign follicular nodule with cystic change. B. Fine needle aspiration, left thyroid nodule (smears): Adequate for evaluation. Atypical follicular cells of undetermined clinical significance with cystic change. AM:chrystal 03/23/2021 COMMENT Reference is made to the patient's previous cytology ([id number]) in which similar findings were identified. CYTOLOGY STUDY Slides are reviewed. CYTOLOGY GROSS A - Received is 5 ml of red cloudy fluid labeled with the patient's name and and designated per the requisition as left thyroid. Submitted for cytology preparation including cell block. B - Received are eight smears labeled with the patient's name and designated per the requisition as left thyroid. Submitted for staining. / chrystal 03/22/2021 TC:? CPT: 26520, 07749, 75913
== END ==
PROVIDERS: PCP Internal Medicine; Visit Provider Surgery
DX: E04.1 Nontoxic single thyroid nodule (principal)
CPT/HCPCS: 88108; 88161; 88305; 88313

== ENCOUNTER → 2021-04-27 15:56 | Outpatient (CLI) | payer BC, SELFPAY ==
[2021-04-27 17:23] LABS: T4 Free Direct 0.95 ng/dL (0.76-1.46); Thyroid Stim Hormone (TSH) 0.37 uIU/mL (0.358-3.74)
== END ==
PROVIDERS: PCP Internal Medicine; Referring Provider Internal Medicine Endocrinology, Diabetes & Metabolism; Visit Provider Internal Medicine Endocrinology, Diabetes & Metabolism
DX: E06.3 Autoimmune thyroiditis (principal)
CPT/HCPCS: 36415; 84439; 84443

== ENCOUNTER → 2022-03-28 | Outpatient (CLI) | payer BC, SELFPAY ==
[2022-03-28 15:27] LABS: T4 Free Direct 0.94 ng/dL (0.76-1.46); Thyroid Stim Hormone (TSH) 4.25 uIU/mL (0.358-3.74)
== END | disposition home or self-care (01) ==
LOC: BIMLAB 13:09
PROVIDERS: PCP Internal Medicine; Referring Provider Nurse Practitioner Family; Visit Provider Nurse Practitioner Family
DX: E06.3 Autoimmune thyroiditis (principal)
CPT/HCPCS: 36415; 84439; 84443

== ENCOUNTER → 2022-06-14 | Outpatient (CLI) | payer BC, SELFPAY ==
--- NOTE | 2022-06-14 15:52 | US_ITS ---
STUDY: THYROID ULTRASOUND REASON FOR EXAM: Female, 31 years old. Multiple thyroid nodules TECHNIQUE: Ultrasound evaluation of the thyroid was performed with real-time and static montemayor-scale imaging. COMPARISON: 03/13/2021 FINDINGS: RIGHT LOBE: The right lobe of the thyroid gland measures 5.8 x 2.8 x 2.4 cm. There is a heterogeneous echotexture. Nodule 1: No change in the 18 x 14 x 16 mm solid hyperechoic wider than tall ill-defined marginated nodule with no echogenic foci (TR 3) in the anterior right lobe (TR 3) and follow-up ultrasound is recommended in one year. LEFT LOBE: The left lobe of the thyroid gland measures 5.6 x 2.9 x 2.3 cm. There is a heterogeneous echotexture. Nodule 2: No change in the 8 x 10 x 12 mm cystic anechoic wider than tall smoothly marginated nodule with no echogenic foci (TR 1) in the anterior left lobe consistent with a colloid cyst. Nodule 2: No change in the 18 x 14 x 18 mm mixed cystic and solid isoechoic wider than tall ill-defined marginated nodule with no echogenic foci (TR 2) in the mid left lobe consistent with an adenoma. ISTHMUS: The isthmus measures 7 mm thick. . The regional lymph nodes are normal. US/Thyroid IMPRESSION: No change in multinodular thyroid gland and follow-up ultrasound is recommended in one year. Electronically Signed: Taqueria Slaughter MD at 17:57 EST ,
--- NOTE | 2022-06-14 15:52 | US_ITS ---
EXAM: US SOFT TISSUES OF THE NECK CLINICAL INDICATION: Multiple thyroid nodules -- please report on Cervical lymph nodes TECHNIQUE: Real-time ultrasound scan of the soft tissues of the neck with image documentation. This report was created using SENSIM[employer] report EQAL technology. COMPARISON: None. FINDINGS: SOFT TISSUES: Normal. No abscess. No foreign body. LYMPH NODES: There are multiple small cervical lymph nodes noted throughout the a zones of the right and left side of the neck. Average short axis diameter of the nodes is 5 mm or less. Normal internal architecture noted within most of the lymph nodes. US/Head/Neck Soft Tissue IMPRESSION: Multiple reactive cervical lymph nodes noted bilaterally. No discrete pathologic lymph node is identified. Electronically Signed: Zacarias Gonzales MD at 8:27 EST ,
== END | disposition home or self-care (01) ==
LOC: US 15:51
PROVIDERS: PCP Internal Medicine; Visit Provider Surgery
DX: E01.0 Iodine-deficiency related diffuse (endemic) goiter (principal)
CPT/HCPCS: 76536

== ENCOUNTER → 2022-06-26 | Outpatient (CLI) | payer BC, SELFPAY ==
--- NOTE | 2022-06-26 | FLU_PTH ---
PATIENT: DAVID WANG LOC: [facility] U#:[id number] AGE/SX: 31/F ROOM: RE06/26/[address]: Dr. Ramos Hall MD : 1990 BED: DIS: 06/26/2022 SPEC #: [id number] RECD: 06/27/22 12:25 STATUS: EM MARGARITA #: [id number] YOJANA: 06/26/22 00:[address]: Ramos Hall DEPT: CYTOLOGY RECD BY: Mena Lee ENTERED: 06/27/22 12:25 SP TYPE: Fluid OTHR DR: Dr. Evelia Vickers MD Tissues: A - Thyroid gland, NOS B - Thyroid gland, NOS C - Thyroid gland, NOS Procedures: Special Stain Group II Surgery Specimen Level IV Cytospin Fluid Cytology Other HEADER OPERATION: Fine needle aspiration, right and left thyroid nodules PRE-OP DIAGNOSIS: Thyroid nodules TISSUE SUBMITTED: A ? Left lower thyroid nodule fluid, B ? Left thyroid nodule tissue x4 slides, C ? Right thyroid nodule tissue x6 slides DIAGNOSIS CYTOLOGY A. Left lower thyroid nodule fluid, fine needle aspiration (cytospin and cell block): Consistent with cyst contents. See comment. B. Left thyroid nodule, fine needle aspiration (smears): Negative for malignant cells. See comment. C. Right thyroid nodule, fine needle aspiration (smears): Consistent with benign follicular/colloid nodule (Industry Category II). Adequate for evaluation. See comment. SJ:chrystal 06/28/2022 COMMENT A. The specimen consists of numerous macrophages. The specimen is nondiagnostic/unsatisfactory (Industry Category I). B. The specimen consists of rare macrophages and follicular cells. The specimen is nondiagnostic/ unsatisfactory (Industry Category I). Please make reference to previous specimens ([id number]) right thyroid nodule, FNA with diagnosis of ?benign follicular/colloid nodule? and left thyroid nodule, FNA with diagnosis of ?a few atypical follicular cells of undetermined significance in the background of cystic follicular nodule,? and (K61-880) FNA, left thyroid nodule with diagnosis of ?atypical follicular cells of undetermined significance with cystic changes.? Correlation with clinical, radiologic findings and appropriate follow up are necessary. Per recommendations and a clinician-approved plan (a call was made to the referring doctor about the recommendation), genomic testing ([employer]) has been submitted. Results will be reported as an addendum and faxed to clinician. CYTOLOGY STUDY Slides are reviewed. CYTOLOGY GROSS A - Received is 15 ml of dark brown fluid labeled with the patient's name and and designated per the requisition as left lower thyroid nodule. Submitted for cytology preparation including cell block. B - Received are four smears labeled with the patient's name and designated per the requisition as left thyroid nodule tissue. Submitted for staining. C - Received are six smears labeled with the patient's name and designated per the requisition as right thyroid nodule tissue. Submitted for staining. / chrystal 06/27/2022 TC:5 CPT: 06786 x3, 47964 ADDENDUM ADDENDUM ADDENDUM ADDENDUM ADDENDUM ADDENDUM ADDENDUM ADDENDUM ADDENDUM 08/22/2022 10:29 ADDENDUM 08/22/2022 10:29 ADDENDUM 08/22/2022 10:29 ADDENDUM 08/22/2022 10:29 ADDENDUM 08/22/2022 10:29 AFIRMA RESULTS REPORT NODULE ?A? RESULTS SUMMARY: The result of this 1.8 cm nodule ?A? is Afirma GSC benign, which suggests a low risk of cancer at approximately 4%. Treatment like a cytologically benign nodule may be appropriate, including clinical correlation. Afirma XA is not performed on GSC benign nodules. Please see complete report in e-chart or EMR
== END | disposition home or self-care (01) ==
PROVIDERS: PCP Internal Medicine; Visit Provider Surgery
DX: E04.1 Nontoxic single thyroid nodule (principal)
CPT/HCPCS: 88108; 88161; 88305; 88313

== ENCOUNTER 2022-08-14 06:01 | Day surgery (SDC) | payer BC, SELFPAY ==
--- NOTE | 2022-08-02 07:06 | EKG12_ITS ---
Test Reason : PRE-OP Blood Pressure : / mmHG Vent. Rate : 083 BPM Atrial Rate : 083 BPM P-R Int : 124 ms QRS Dur : 090 ms QT Int : 358 ms P-R-T Axes : 030 041 026 degrees QTc Int : 420 ms Normal sinus rhythm with sinus arrhythmia Low voltage QRS Borderline ECG Confirmed by MIRZA DUCKWORTH, LAURA ([id number]), material expeditor CHERI BUTLER ([id number]) on 08/05/2022 9:09:56 AM Referred By: Ramos Hall Confirmed By:LAURA BLUE MD
[2022-08-02 07:57] LABS: Hematocrit 35.4 % (37-47); Hemoglobin 10.7 g/dL (12.0-15.0); Mean Corp Hgb Conc 30.2 g/dL (32-36); Mean Corpuscular Hgb 26.2 pg (27.0-32.0); Mean Corpuscular Volume 86.6 fL (81-99); Mean Platelet Vol. 10.7 fl (6.2-12.0); Platelet Count 200 K/mm3 (150-450); RBC Distribution Width CV 14.8 % (11.6-14.6); RBC Distribution Width SD 47.2 fl (35.1-43.9); Red Blood Count 4.09 M/mm3 (4.2-5.4); White Blood Count 4.4 K/mm3 (4.4-11.0)
[2022-08-02 08:20] LABS: Anion Gap 3 (5-15); BUN 9 mg/dL (7-18); Calcium,Total 8.9 mg/dL (8.5-10.1); Chloride 108 mmol/L (98-107); Creatinine, Serum 0.69 mg/dL (0.55-1.02); EST Glomerular Filtration Rate 104 mL/min (>60); Est Glom Filt Rate - Afr Amer 125 mL/min (>60); Glucose 110 mg/dL (74-106); Phosphorus 3.9 mg/dL (2.5-4.9); Potassium 3.8 mmol/L (3.5-5.1); Sodium Level 141 mmol/L (136-145)
[2022-08-02 08:38] LABS: AST(SGOT) 13 U/L (15-37); Alanine Aminotransfer ALT/SGPT 15 U/L (13-56); Albumin, Serum 3.8 g/dL (3.2-5.0); Alkaline Phosphatase 68 U/L (45-117); Anion Gap 7 (5-15); BUN 9 mg/dL (7-18); BUN/Creat Ratio 13.2 RATIO (10-20); Chloride 109 mmol/L (98-107); Creatinine, Serum 0.68 mg/dL (0.55-1.02); EST Glomerular Filtration Rate 105 mL/min (>60); Est Glom Filt Rate - Afr Amer 128 mL/min (>60); Globulin 3.7 g/dL (2.2-4.2); Glucose 109 mg/dL (74-106); Potassium 3.8 mmol/L (3.5-5.1); Protein, Total 7.5 g/dL (6.4-8.2); Sodium Level 142 mmol/L (136-145); T4 Free Direct 0.85 ng/dL (0.76-1.46); Thyroid Stim Hormone (TSH) 9.92 uIU/mL (0.358-3.74)
[2022-08-14] VITALS (10 sets, daily range): BP systolic 104–114; BP diastolic 63–84; PULSE 79–101; RESP 14–16; TEMP 36.9–37.7; O2SAT 99–100; BMI 25.4
--- NOTE | 2022-08-14 | IMM_PTH ---
PATIENT: DAVID WANG LOC: [facility] U#:[id number] AGE/SX: 31/F ROOM: RE08/14/[address]: Dr. Ramos Hall MD : 1990 BED: DIS: 08/14/2022 SPEC #: [id number] RECD: 08/19/22 13:19 STATUS: EM REQ #: [id number] YOJANA: 08/14/22 00:[address]: Ramos Hall DEPT: IMMUNOHISTOCHEMISTRY RECD BY: Lexis Padilla ENTERED: 08/19/22 13:21 SP TYPE: IMMUNO OTHR DR: MD Dr. 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 Localization is made via biotin free immunoperoxidase method. Appropriate controls are performed and reacted as expected. Results on target cell population are indicated in the following table: RESULTS: ANTIBODY / CLONE RESULT Block 5 HBME1 (HBME-1) positive CK19 (A53-B/A2.26) positive GAL3 (9C4) positive CD56 (123C3.D5) negative Block 6 HBME1 (HBME-1) positive CK19 (A53-B/A2.26) positive GAL3 (9C4) positive CD56 (123C3.D5) negative These tests were developed and their performance characteristics determined by [facility]. They may not have been cleared or approved by the [place] Food and Drug Administration. The FDA has determined that such clearance or approval is not necessary. The above immunohistochemical/dualISH markers are ordered and reviewed by the Pathologist. 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 SJ:chrystal 08/21/2022 Case has been reviewed in consultation with Dr. Dinh who concurs with the above diagnosis. IDC:AM
--- NOTE | 2022-08-14 06:04 | PCM.HP.BLA ---
History and Physical Date of Admission: 08/14/22 Chief Complaint: Mary's, goiter Allergies contact solution Allergy (Mild, Uncoded 07/16/22 09:07) Swelling Medications clobetasol 0.05 % scalp solution 1 MISCELL. 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 Luis Carlos Puentes.? Patient inquired about ongoing concerns regarding left thyroid lobectomy versus total thyroidectomy.? Recommendations were made by Dr. Luis Carlos Puentes for left thyroid lobectomy with possible extension to a subtotal thyroidectomy.? This would be pending operative findings. Ramos Hall M.D., F.A.C.S. 07/16/22 1437 <Electronically signed by Ramos Hall MD> Date Ramos Hall MD cc:? Dr. Evelia Vickers MD ~* Signed Intake Intake Visit Reasons:?DISCUSS THYROID RESULTS Chief Complaint: Discuss Left Thyroid Lobectomy Home Mortgage Disclosure Act Specialist Required: No Accompanied by: Unknown Is patient in pain?: No Allergies contact solution Allergy (Mild, Uncoded 07/04/22 14:25) Swelling Medications clobetasol 0.05 % scalp solution 1 MISCELL. DAILY autoimmune deficiency 01/24/16 [History Confirmed 07/04/22] lactobacillus combination no.8 3 billion cell capsule (Adult Probiotic) 3,000 mmu cells PO DAILY 06/20/20 [History Confirmed 07/04/22] levothyroxine 125 mcg tablet 125 mcg PO DAILY #90 tabs 05/27/22 [Rx Confirmed 07/04/22] PFSH Medical History? H/O hemorrhage, currently Mary's thyroiditis History of anemia Hypothyroid in , antepartum Multiple thyroid nodules Nodular goiter Supervision of normal Thyroid dysfunction Thyroid nodule Surgical History?(Updated 07/04/22 @ 14:25 by Eboni Maria) History of biopsy Status post fine needle aspiration (~07/2020) Family History? Grandmother Diabetes Myocardial infarction,? Onset Age: 72Grandfather DiabetesFather HypertensionGrandmother Heart diseaseAunt Thyroid disorder Social History? adopted:? No household members:? family housing:? house number of children:? 2 current occupational status:? employed current occupation:? [employer] sexually active:? Yes Smoking Status:? Never smoker second hand exposure:? No alcohol intake:? never substance use type:? does not use seatbelt use:? always do you feel safe at home:? Yes additional social history:? - Kingsley HPI HPI HPI: The patient returns to discuss cytology results.? On June 27, 2022 I performed ultrasound-guided bilateral thyroid nodule fine-needle aspiration.? The right thyroid nodule was felt to be consistent with follicular colloid nodule Trenary category 2.? There was a significant amount of fluid aspirated from the left thyroid nodule and this material was felt to be consistent with cyst contents and the remainder of the fine-needle aspiration of the left was negative for malignant cells.? The specimen contains numerous macrophages.? The specimen was felt to be nondiagnostic.? Both the fluid and fine-needle aspiration. My previous notes reflect the following Chief Complaint: Discuss Left Thyroid Lobectomy Allergies contact solution Allergy (Mild, Uncoded 06/07/22 07:36) Swelling PFSH Medical History? H/O hemorrhage, currently Mary's thyroiditis History of anemia Hypothyroid in , antepartum Multiple thyroid nodules Nodular goiter Supervision of normal Thyroid dysfunction Thyroid nodule Surgical History? Status post fine needle aspiration (~07/2020) Family History? Grandmother Diabetes Myocardial infarction,? Onset Age: 72Grandfather DiabetesFather HypertensionGrandmother Heart diseaseAunt Thyroid disorder Social History? adopted:? No household members:? family housing:? house number of children:? 2 current occupational status:? employed current occupation:? [employer] sexually active:? Yes Smoking Status:? Never smoker second hand exposure:? No alcohol intake:? never substance use type:? does not use seatbelt use:? always do you feel safe at home:? Yes additional social history:? - Kingsley HPI HPI HPI: 31-year-old female presents today for an ultrasound-guided fine-needle aspiration of the thyroid.? We actually had her schedule sooner but she was unable to make that appointment.? I saw her on June 07 recommended a thyroid ultrasound and soft tissue ultrasound of the neck.? Thyroid ultrasound was accomplished on June 14, 2022 demonstrating no change in multinodular thyroid gland follow-up thyroid ultrasound in 1 year.? The soft tissue ultrasound demonstrated reactive lymph nodes bilaterally but no focal issue.? We are evaluating her for potential left thyroid lobectomy or perhaps slightly more pertinently a total thyroidectomy.? I anticipate today an ultrasound-guided fine-needle aspiration of an 18 mm nodule in her right thyroid and of her 18 mm solid cystic nodule of the left thyroid with Afirma. June 14, 2022 STUDY: ? THYROID ULTRASOUND REASON FOR EXAM: ? Female, 31 years old. Multiple thyroid nodules TECHNIQUE: ? Ultrasound evaluation of the thyroid was performed with real-time and static montemayor-scale imaging. COMPARISON: ? 03/13/2021 FINDINGS: RIGHT LOBE:? The right lobe of the thyroid gland measures 5.8 x 2.8 x 2.4 cm.? There is a heterogeneous echotexture. Nodule 1: No change in the 18 x 14 x 16 mm solid hyperechoic wider than tall ill-defined marginated nodule with no echogenic foci (TR 3) in the anterior right lobe (TR 3) and follow-up ultrasound is recommended in one year. LEFT LOBE:? The left lobe of the thyroid gland measures 5.6 x 2.9 x 2.3 cm. There is a heterogeneous echotexture. Nodule 2: No change in the 8 x 10 x 12 mm cystic anechoic wider than tall smoothly marginated nodule with no echogenic foci (TR 1) in the anterior left lobe consistent with a colloid cyst. Nodule 2: No change in the 18 x 14 x 18 mm mixed cystic and solid isoechoic wider than tall ill-defined marginated nodule with no echogenic foci (TR 2) in the mid left lobe consistent with an adenoma. ISTHMUS:? The isthmus measures 7 mm thick. . The regional lymph nodes are normal. US/Thyroid IMPRESSION: No change in multinodular thyroid gland and follow-up ultrasound is recommended in one year. ? Electronically Signed: Taqureia Slaughter MD at 17:57 EST , June 14, 2022 EXAM:? US SOFT TISSUES OF THE NECK CLINICAL INDICATION:? Multiple thyroid nodules -- please report on Cervical lymph nodes TECHNIQUE:? Real-time ultrasound scan of the soft tissues of the neck with image documentation.? This report was created using [employer] technology. COMPARISON:? None. FINDINGS: SOFT TISSUES:? Normal.? No abscess.? No foreign body. LYMPH NODES:? There are multiple small cervical lymph nodes noted throughout the a zones of the right and left side of the neck.? Average short axis diameter of the nodes is 5 mm or less.? Normal internal architecture noted within most of the lymph nodes. US/Head/Neck Soft Tissue IMPRESSION: ? Multiple reactive cervical lymph nodes noted bilaterally.? No discrete pathologic lymph node is identified. ? Electronically Signed: Zacarias Gonzales MD at 8:27 EST , My previous notes reflect the following Visit Reasons:?POSSIBLE LOBECTOMY Chief Complaint: Discuss Left Thyroid Lobectomy Home Mortgage Disclosure Act Specialist Required: No Is patient in pain?: No Allergies contact solution Allergy (Mild, Uncoded 06/07/22 07:36) Swelling Medications clobetasol 0.05 % scalp solution 1 MISCELL. DAILY autoimmune deficiency 01/24/16 [History Confirmed 06/07/22] lactobacillus combination no.8 3 billion cell capsule (Adult Probiotic) 3,000 mmu cells PO DAILY 06/20/20 [History Confirmed 06/07/22] levothyroxine 125 mcg tablet 125 mcg PO DAILY #90 tabs 05/27/22 [Rx Confirmed 06/07/22] PFSH Medical History? H/O hemorrhage, currently Mary's thyroiditis History of anemia Hypothyroid in , antepartum Multiple thyroid nodules Nodular goiter Supervision of normal Thyroid dysfunction Thyroid nodule Surgical History? Status post fine needle aspiration (~07/2020) Family History? Grandmother Diabetes Myocardial infarction,? Onset Age: 72Grandfather DiabetesFather HypertensionGrandmother Heart diseaseAunt Thyroid disorder Social History? adopted:? No household members:? family housing:? house number of children:? 2 current occupational status:? employed current occupation:? [employer] sexually active:? Yes Smoking Status:? Never smoker second hand exposure:? No alcohol intake:? never substance use type:? does not use seatbelt use:? always do you feel safe at home:? Yes additional social history:? - Kingsley HPI HPI HPI: 31-year-old female.? I am assisting with her care in collaboration with Dr. Luis Carlos Puentes.? The patient's most recent office visit with me was April 09, 2021.? I had recommended to her at that time a left thyroid lobectomy.? The patient has been seen by Dr. Luis Carlos Puentes on May 27, 2022.? At that point the patient complained of a low-grade pain in the left neck and difficulty swallowing since her fine-needle aspiration.? There is concerned that the left thyroid lobe is enlarged and is now firm.? We do yet have updated imaging.? As of March 28, 2022 TSH was 4.25 with a free T4 of 0.94.? The patient is managed on levothyroxine 125 mcg orally daily The patient notes that when she turns her head to the left she feels a tightness in the left neck.? States its been going on for couple months.? She has no hoarseness.? She states that if she is leaning back that occasionally she has a little bit of change in her ability to swallow.? She otherwise has a good feeling of health.? No other acute medical issues at this setting My previous notes reflect the following On March 21, 2021 a repeat ultrasound-guided fine needle aspiration of the left thyroid solid cystic nodule was performed. A.? Fine needle aspiration, left thyroid nodule (cytospin and cell block): Adequate for evaluation.Negative, consistent with benign follicular nodule with cystic change. B.? Fine needle aspiration, left thyroid nodule (smears):Adequate for evaluation.Atypical follicular cells of undetermined clinical significance with cystic change HPI: DAVID WANG, is a 30 F who presents to the office today for ongoing surgical consultation regarding her thyroid nodule.? The patient is referred back by Dr. Luis Carlos Puentes and a written copy of my surgical consult recommendations will return to her.? During the patient's she developed multiple thyroid nodules and autoimmune thyroid disease.? Subsequent to her delivery there is concerned that the left thyroid nodule has enlarged per examination. The patient consents the item. She states that Dr. Bette Mike her PRODUCTION CONTROL MANAGER thought that on clinical exam it was larger. The patient states that infrequently it is tender. She has no hoarseness. No choking. Evaluate this we updated her thyroid ultrasound as noted below on March 13, 2021. It did not demonstrate a clinically significant change but there is a dominant 2.5 cm solid cystic nodule of the left thyroid. Also as noted below July 28 we had done a fine-needle aspiration on the left. There were a few atypical follicular cells of undetermined significance. My previous note of July 28, 2020 reflects the following HPI: DAVID WANG, is a 29 F who presents to the office today for surgical consultation for bilateral thyroid fine-needle aspiration.? The patient's primary care physician Dr. Evelia Vickers.? She just earlier today by her account saw Dr. Luis Carlos Puentes.? The patient is having her thyroid medication adjusted.? As noted below she had a thyroid ultrasound.? There is felt to be a suspicious right thyroid nodule 1.8 cm and there is post to be a solid cystic left thyroid 1.87 cm nodule. Laboratory as of June 20, 2020 showed a thyroid peroxidase antibody of greater than 600 with a TG AB less than 1.? Free T4 was 2.6 with a TSH of 6.69 and a T4 direct of 0.77. July 28, 2020 DIAGNOSIS CYTOLOGY A.? Right thyroid nodule, FNA (smears):Consistent with benign follicular/colloid nodule.Adequate for evaluation. B.? Left thyroid nodule, FNA (smears):A few atypical follicular cells of undetermined significance in the background of cystic follicular nodule.Adequate for evaluation.See comment. C.? Left thyroid nodule fluid, FNA (cytospin and cell block):Consistent with cyst contents.See comment Updated thyroid ultrasound March 13, 2021 STUDY: ? THYROID ULTRASOUND REASON FOR EXAM: ? Female, 30 years old. Mary''s TECHNIQUE: ? Ultrasound evaluation of the thyroid was performed with real-time and static montemayor-scale imaging. COMPARISON: ? 07/28/2020 FINDINGS: RIGHT LOBE:? The right lobe of the thyroid gland measures 5.9 x 2.7 x 2.4 cm.? There is a heterogeneous echotexture. 1.9 x 1.9 x 1.3 cm, 0.8 x 0.8 x 0.5 cm, and 1.4 x 1.5 x 1.0 cm solid nodules with regular margins and. Nodular and intranodular DOPPLER vascularity. LEFT LOBE:? The left lobe of the thyroid gland measures 5.9 x 3.1 x 3 point cm.? There is a heterogeneous echotexture.? 1.0 x 1.6 x 1 0 cm cystic, 0.8 x 0.8 x 0.6 cm solid, and 2.5 x 2.4 x 1.5 cm mixed cystic and solid nodules with regular margins and periventricular vascularity. ISTHMUS:? The isthmus measures 7 mm. The regional lymph nodes are normal. Area of palpable lump on left.? Corresponds to the area to cystic nodules. US/Thyroid IMPRESSION: Thyroid is 3 nodule in the right thyroid measures up to 1.9 cm.? This is not significantly changed compared to 06/28/2020, and can be followed up with ultrasound in 2 years. Thyroid morphology consistent with given diagnosis of Mary''s. ? Electronically Signed: MD DIPIKA Reeder General General: Yes fatigue; No weight change, appetite, colon cancer, breast cancer or weakness HEENT HEENT: No difficulty swallowing, eye injury, eye surgery, swollen glands or hoarseness Endo Endocrine: Yes thyroid disease; No diabetes mellitus, thyroid cancer, Hair loss, heat intolerance or cold intolerance Skin Skin: No rash or changing moles Musc Musculoskeletal: No back problems, arthritis, rheumatoid arthritis, gout or joint pain Cardio Cardiovascular: No murmur, pacemaker, heart disease, atrial fibrillation, high blood pressure, heart attack, heart stent, palpitations, shortness of breat with exertion or chest pain Psych Psychiatric: No depression, anxiety or hearing voices Resp Respiratory: No shortness of breath, No sleep apnea, No cough, No COPD, No asthma, No emphysema and No wheezing Gastro Gastrointestinal: No abdominal pain, No nausea or vomiting, No diarrhea, No constipation, No blood in stool, No acid reflux, No hemorrhoids, No ulcers, No gallbladder problem and No black,tarry stools Ferny Hematologic: No blood thinners, No blood disorders, No bleeding, No anemia and No blood clots Neuro Neurologic: No system reviewed and no additional complaints, except as documented, No as per HPI, No abnormal gait, No abnormal hearing, No abnormal movements, No abnormal speech, No behavioral changes, No burning sensations, No confusion, No convulsions, No disequilibrium, No dizziness, No localized weakness, No frequent falls, No headache(s), No lack of coordination, No loss of vision, No memory loss, No numbness, No other visual disturbances, No radicular pain, No restless legs, No sensory deficit, No syncope, No tingling, No tremor(s), No weakness and No other Exam Const General: cooperative, healthy appearing, comfortable and no acute distress [facility] Head: normal to inspection Eyes General: appearance normal, both eyes and all related structures Neck Other: Thyroid is visible.? It is easily palpable.? Both sides moves with swallowing.? Left side certainly is dominant and somewhat firm and nodular.? I do not detect any cervical lymph nodes.? No supraclavicular lymph nodes.? Carotids 3+. Chest Chest palpation & inspection: normal inspection of the chest Resp Effort & Inspection: normal respiratory effort Cardio Rate: regular rate Rhythm: regular rhythm GI Palpation: soft and no hepatosplenomegaly Auscultation: normal bowel sounds Musc Cervical Spine: normal cervical lordosis Skin General: no rashes or lesions noted Neuro General: patient alert, patient awake and patient oriented x3 Other: Voice is clear Extrem General: no calf tenderness Psych Appearance: grossly normal Assessment and Plan Assessment and Plan (1) Left thyroid nodule: ?Status:?Acute (2) Nodular goiter: ?Status:?Acute (3) Thyromegaly: ?Status:?Acute ?Comment: us ordered, has sarah fu with gen surg and (4) 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 ? ? Orders: Orders Head/Neck Soft Tissue Today?? E01.0 - Iodine-deficiency related diffuse (endemic) goiter, E04.9 - Nontoxic goiter, unspecified ? Thyroid Today?? E01.0 - Iodine-deficiency related diffuse (endemic) goiter, E04.9 - Nontoxic goiter, unspecified ? Plan I agree with Dr. Luis Carlos Puentes that the patient seems to have enlargement and increased firmness of the left thyroid.? Her previous thyroid ultrasound was March 2021.? She has known nodules on the right as well.? With that in mind I would like to get a thyroid ultrasound with soft tissue ultrasound of the neck looking for lymph nodes.? I will then have the patient return the office.? I anticipate likely bilateral repeat fine-needle aspiration with Bayleeirmhilario.? The patient has been dealing with this thyroid issue for a period of time.? She is already on thyroid replacement.? It may be a consideration to perform a total thyroidectomy rather than just a left thyroid lobectomy.? The patient and are aware that this does come with increased operative risk.? However return to surgery carries increased risk as well. She has had an opportunity ask and have questions answered.? We will repeat the above ultrasound have the patient return perform fine-needle aspiration with a firm and then assist the patient with further decision as to what definitive surgical procedure to pursue.? I am certainly in agreement that surgery for her thyroid is appropriate at this setting Copy: Dr. Luis Carlos Puentes and Dr. Evelai Hall M.D., F.A.C.S Office Procedures Fine Needle Aspiration Provider Documentation Details: Ultrasound-guided fine needle aspiration bilateral thyroid nodules Timeout informed consent was obtained.? Patient was taken the procedure room placed on the table her neck was sterilely prepped and draped.? I started on the left side.? This nodule which is clinically felt to be more firm actually appeared to have more of a cystic component to it.? Under ultrasound guidance I instilled 1 cc of 1% lidocaine.? I then used a 22-gauge needle and was able to aspirate literally 4 cc of bloody brownish fluid.? That will be sent for cytology.? The vast majority of that nodule seem to collapse.? I then performed with 2 separate passes and a 25-gauge needle a rapid satp-hsh-[id number] motion aspirate of this residual left thyroid nodule and smeared that out on slides and treated with fixative.? I elected not to send any of this material for affirm today I then inspected the right thyroid nodule and this appeared to have a majority of a solid component and a lesser degree of a cystic component.? I utilized the same local 1 cc.? I then advanced a 25-gauge needle into the nodule and a rapid hwld-[id number]-[id number] motion was performed in order to obtain specimen.? 3 separate passes were performed.? Specimen is smeared out on slides and treated with fixative.? I then used a 23-gauge needle into the fourth set of passes and I did submit that material for Affirma. 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 The thyroid itself has a diffuse abnormal texture consistent with her history of Mary's.? Thyroid gland is diffusely enlarged.? The left nodule had a majority cystic versus solid component.? The right thyroid nodule mostly solid versus cystic component.? I will have her return with the cytology results.? Currently I am still leaning toward recommending a total thyroidectomy for definitive treatment.? As noted previously the patient is already on levothyroxine therapy. She has had an opportunity to ask and have questions answered and will return next week for preoperative planning. Copy: Dr. Luis Carlos Puentes and Dr. Evelia Hall M.D., F.A.C.S ROS General General: Yes fatigue; No weight change, appetite, colon cancer, breast cancer or weakness HEENT HEENT: No difficulty swallowing, eye injury, eye surgery, swollen glands or hoarseness Endo Endocrine: Yes thyroid disease; No diabetes mellitus, thyroid cancer, Hair loss, heat intolerance or cold intolerance Skin Skin: No rash or changing moles Musc Musculoskeletal: No back problems, arthritis, rheumatoid arthritis, gout or joint pain Cardio Cardiovascular: No murmur, pacemaker, heart disease, atrial fibrillation, high blood pressure, heart attack, heart stent, palpitations, shortness of breat with exertion or chest pain Psych Psychiatric: No depression, anxiety or hearing voices Resp Respiratory: No shortness of breath, No sleep apnea, No cough, No COPD, No asthma, No emphysema and No wheezing Gastro Gastrointestinal: No abdominal pain, No nausea or vomiting, No diarrhea, No constipation, No blood in stool, No acid reflux, No hemorrhoids, No ulcers, No gallbladder problem and No black,tarry stools Ferny Hematologic: No blood thinners, No blood disorders, No bleeding, No anemia and No blood clots Neuro Neurologic: No system reviewed and no additional complaints, except as documented, No as per HPI, No abnormal gait, No abnormal hearing, No abnormal movements, No abnormal speech, No behavioral changes, No burning sensations, No confusion, No convulsions, No disequilibrium, No dizziness, No localized weakness, No frequent falls, No headache(s), No lack of coordination, No loss of vision, No memory loss, No numbness, No other visual disturbances, No radicular pain, No restless legs, No sensory deficit, No syncope, No tingling, No tremor(s), No weakness and No other Assessment and Plan Assessment and Plan (1) Thyromegaly: ?Status:?Acute ?Comment: us ordered, has jesus smith with gen ashish and job (2) Nodular goiter: ?Status:?Acute (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 The patient does have thyromegaly with enlargement bilaterally.? She is a speech therapist.? We discussed potential operation of a simply a left thyroid lobectomy and the benefits and risks of that procedure.? The patient is on lifelong thyroid replacement.? We discussed the potential of a total thyroidectomy.? There felt to be benefits and risks to each procedure.? She has had an opportunity to ask and have questions answered.? She will consider her treatment options and notify us as to whether she would like to proceed with the left thyroid lobectomy or whether she would like to proceed with a total thyroidectomy.? We will schedule procedure at her discretion. Copy: Dr. Evelia Vickers and Dr. Luis Carlos Hall M.D., F.A.C.S
--- NOTE | 2022-08-14 06:10 | EX.PCM.DISCH ---
Discharge Instructions Diet Discharge Diet: Light diet - advance as tolerated Activity Discharge Activity: May Not Drive (May not drive for 3 to 5 days.) and May Shower Lifting Restrictions: 10 pound weight lifting restriction Dressing / Incision Call your doctor if your incision/area has: Continuous Slow Oozing and Increased Pain/ Swelling Call your doctor if you observe: Fever of 101 or Higher Follow Up Care Please Follow Up With: Ramos Hall MD When: Please call [phone] for office follow-up in approximately 10 days Discharge Plan Admission Attending Provider: Ramos Hall Primary Care Provider: Evelia Vickers Consulting Providers: Luis Carlos Puentes Discharge Orders/Prescriptions Prescriptions: No Action Adult Probiotic 3 billion cell capsule 3,000 mmu cells PO DAILY Rx Instructions: administer with a meal levothyroxine 125 mcg tablet 125 mcg PO DAILY Qty: 90 3RF clobetasol 50 ML solution 1 applic MISCELL. DAILY PRN (Reason: AUTOIMMUNE DEFICIENCY) Label Comments: Rx Instructions: used when shampooing her hair, REDUCES REDNESS 1 PER WEEK multivitamin Tablet 1 tab PO DAILY Referrals / Follow Up: Evelia Vickers MD [Primary Care Provider] - Disposition Disposition (needs filled in before D/C Order can be placed): Home, Self Care
[2022-08-14 06:32] LABS: Internal QC Validated? YES +Cl - CLEAR BKGD; Pregnancy, Urine Negative Negative
[2022-08-14] MEDS: Lactated Ringers 1,000 ML 15 ML IV ×2 (06:52→08:05)
--- NOTE | 2022-08-14 07:30 | THYROID_PTH ---
PATIENT: DAVID WANG LOC: [facility] [place] U#:[id number] AGE/SX: 31/F ROOM: RE08/14/[address]: Dr. Ramos Hall MD : 1990 BED: DIS: 08/14/2022 SPEC #: [id number] RECD: 08/14/22 13:57 STATUS: EM AVILA #: [id number] YOJANA: 08/14/22 07:[address]: Ramos Hall DEPT: SURGICAL PATHOLOGY RECD BY: Mena Lee ENTERED: 08/15/22 09:56 SP TYPE: THYROID OTHR DR: MD Dr. 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 Multinodular goiter. 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 Unremarkable parathyroid tissue adjacent to the right and left thyroid lobe. One benign perithyroidal lymph node. See comment. 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 Please make reference to previous specimens ([id number]) left thyroid nodule fluid, FNA with diagnosis of ?consistent with cyst contents and negative for malignant cells? and right thyroid nodule, FNA with diagnosis of ?consistent with benign follicular/colloid nodule? and ([id number]) right thyroid nodule, FNA with diagnosis of ?benign follicular nodule? and left thyroid nodule, FNA with diagnosis of ?a few atypical follicular cells of undetermined significance in the background of cystic follicular nodule? and ([id number]) FNA, left thyroid nodule with diagnosis of ?atypical follicular cells of undetermined significance with cystic changes.? Case has been reviewed in consultation with Dr. Dinh who concurs with the above diagnosis. IDC:AM MICROSCOPIC DESCRIPTION Slides are reviewed. GROSS DESCRIPTION Received in fixative is one container labeled with the patient's name and designated thyroid. The specimen consists of a thyroid gland weighing 39 gm. The right lobe measures 6.0 x 3.5 x 2.5 cm. The left lobe measures 5.5 x 3.5 x 3 cm. The isthmus measures 1.5 x 1.0 cm. The specimen is differentially inked as follows: right - blue, left - green, isthmus - red and entire posterior surface - black. Serial sections of the right lobe reveal pink-white soft to firm cut surfaces. No distinct mass lesion is identified. Serial sections of the isthmus are similar in appearance. Serial sections of the left lobe likewise reveal similar cut surfaces with no distinct mass lesions. Rn Access sections are submitted in 11 cassettes as follows: 1-5 - right lobe, 6 - isthmus, totally submitted, 7-11 - left lobe. / AM:chrystal 08/15/2022 The rest of the right lobe is submitted in cassettes 12-17. / SJ:chrystal 08/19/2022 TC:5 CPT: 68459
[2022-08-14] MEDS: Bupivacaine Mpf 0.5% 30 ML VIAL (09:49)
--- NOTE | 2022-08-14 09:49 | OP.PCM_ITS ---
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 31-year-old female was taken to the operating placed on the table underwent general endotracheal ovation esthesia neck was gently extended appropriately prepped transverse suprasternal incision was created electrocautery dissection performed down through the subcutaneous tissue subplatysmal flaps were raised strap muscles incised vertically a fibrous vascular enlarged thyroid was encountered the left lobe was addressed first I did have to transect the strap muscles partially to get exposure tedious blunt dissection was instituted initially at the inferior pole transecting the internal for pole vascularity felt that the inferior parathyroids identified and preserved I then addressed the left superior pole which extended quite high and required careful tedious dissection to free adherent tissue as I then used a harmonic scalpel to continue to transect. Elevated the left lobe carefully and worked up on its posterior surface. Course of the recurrent ventral nerve was identified and preserved. The gland was then dissected off the anterior surface of the trachea. Throughout the procedure hemostasis was obtained throughout with electrocautery or mostly the harmonic scalpel. I felt that I had gotten a clean resection so because of the similar disease process in the right lobe I then in a similar fashion addressed the right lobe slightly freeing the inferior pole then addressing the superior pole elevating the medial section working directly upon the posterior aspect of the gland. Superior parathyroid felt to be identified on the right. Recurrent laryngeal nerve identified. Dissection performed of the anterior surface of the trachea ligament of Irene was transected. Palpation failed to reveal any clinically significant residual disease. Hemostasis was intact. Fibular was placed on each side of the neck. The strap muscle on the left was repaired with a [id number] suture of 3-0 Vicryl. The strap muscles approximated midline with the same. Subcutaneous tissues were approximated with 3-0 Vicryl. The superior skin edge had been slightly discolored from the retraction. I reexcised the superior edge. Then the skin edges were approximated interrupted 5-0 Vicryl subdermal stitches. Surgical glue was applied followed by Telfa and tape dressing. Sponge and instrument and needle counts were reported to the surgeon to be correct. Throughout the procedure a total of 30 cc of 0.5% Marcaine was used as a local anesthetic. Blood loss 20 cc. Specimens total thyroid. Drains none. She tolerated the procedure well was taken to the recovery room in satisfactory addition apparent complication Ramos Hall M.D., F.A.C.S. Surgeon: Ramos Hall Type of Anesthesia: General and Local Anesthesiologist: Sridhar Potts
[2022-08-14] MEDS: Levothyroxine 125 MCG Tablet PO (10:25)
[2022-08-14] MEDS: Calcitriol 0.25 MCG Capsule PO (10:25)
[2022-08-14] MEDS: BENZOCAINE/MENTHOL 1 LOZENGE MUCOUS MEM (11:43)
[2022-08-14] MEDS: HYDROcodone Bitartrate/Apap 5/325 Tablet PO (11:52)
[2022-08-14] MEDS: Calcium Carbonate 500 MG Tablet PO (11:53)
[2022-08-14 14:50] LABS: Calcium,Total 8.7 mg/dL (8.5-10.1)
== END 2022-08-14 15:28 | disposition home or self-care (01) ==
LOC: SDC 06:01 → AC 06:02
PROVIDERS: Anesthesiology; Internal Medicine Endocrinology, Diabetes & Metabolism; PCP Internal Medicine; Referring Provider Surgery; Visit Provider Surgery
PROC: (CPT 60240; principal; 2022-08-14 07:15)
DX: E06.3 Autoimmune thyroiditis (principal); E01.0 Iodine-deficiency related diffuse (endemic) goiter; R13.10 Dysphagia, unspecified; E06.5 Other chronic thyroiditis; E04.2 Nontoxic multinodular goiter
CPT/HCPCS: 60240; 00320; 36415; 80048; 80053; 81025; 82310; 84100; 84439; 84443; 85027; 88307; 88341; 88342; 93005; J7120; J2405

== ENCOUNTER → 2022-08-15 | Outpatient (CLI) | payer BC, SELFPAY ==
[2022-08-15 16:17] LABS: Calcium,Total 8.5 mg/dL (8.5-10.1)
== END | disposition home or self-care (01) ==
LOC: LAB 14:37
PROVIDERS: PCP Internal Medicine; Referring Provider Surgery; Visit Provider Surgery
DX: E89.0 Postprocedural hypothyroidism (principal)
CPT/HCPCS: 36415; 82310

== ENCOUNTER → 2022-08-22 | Outpatient (CLI) | payer BC, SELFPAY ==
[2022-08-22 09:06] LABS: Calcium,Total 8.9 mg/dL (8.5-10.1)
== END | disposition home or self-care (01) ==
LOC: PAVLAB 08:27
PROVIDERS: PCP Internal Medicine; Referring Provider Surgery; Visit Provider Surgery
DX: E01.0 Iodine-deficiency related diffuse (endemic) goiter (principal)
CPT/HCPCS: 36415; 82310

== ENCOUNTER → 2022-10-04 | Outpatient (CLI) | payer BC, SELFPAY ==
[2022-10-04 12:27] LABS: Calcium,Total 9.2 mg/dL (8.5-10.1)
[2022-10-04 12:58] LABS: T4 Free Direct 0.97 ng/dL (0.76-1.46); Thyroid Stim Hormone (TSH) 3.47 uIU/mL (0.358-3.74)
[2022-10-08 11:19] LABS: Anti-Thyroglobulin AB < 1.0 IU/mL (0.0-0.9); Thyroglobulin, Serum Qt. 0.5 ng/mL (1.5-38.5)
== END | disposition home or self-care (01) ==
LOC: BIMLAB 09:18
PROVIDERS: Physician Assistant; PCP Internal Medicine; Referring Provider Internal Medicine Endocrinology, Diabetes & Metabolism; Visit Provider Internal Medicine Endocrinology, Diabetes & Metabolism
DX: E06.3 Autoimmune thyroiditis (principal); C73 Malignant neoplasm of thyroid gland; E03.8 Other specified hypothyroidism
CPT/HCPCS: 36415; 82310; 84432; 84439; 84443; 86800

== ENCOUNTER → 2023-10-29 | Outpatient (CLI) | payer BC, SELFPAY ==
[2023-10-29 16:11] LABS: T4 Free Direct 0.92 ng/dL (0.76-1.46)
[2023-11-03 09:08] LABS: Anti-Thyroglobulin AB < 1.0 IU/mL (0.0-0.9); Thyroglobulin, Serum Qt. 1.4 ng/mL (1.5-38.5)
== END | disposition home or self-care (01) ==
LOC: BIMLAB 12:08
PROVIDERS: PCP Internal Medicine; Visit Provider Internal Medicine Endocrinology, Diabetes & Metabolism
DX: E03.8 Other specified hypothyroidism (principal); C73 Malignant neoplasm of thyroid gland; E06.3 Autoimmune thyroiditis
CPT/HCPCS: 36415; 84432; 84439; 84443; 86800

== ENCOUNTER → 2024-01-16 | Outpatient (CLI) | payer BC, SELFPAY ==
[2024-01-16 15:42] LABS: T4 Free Direct 1.08 ng/dL (0.76-1.46); Thyroid Stim Hormone (TSH) 3.12 uIU/mL (0.358-3.74)
== END | disposition home or self-care (01) ==
LOC: BIMLAB 11:44
PROVIDERS: PCP Internal Medicine; Referring Provider Internal Medicine Endocrinology, Diabetes & Metabolism; Visit Provider Internal Medicine Endocrinology, Diabetes & Metabolism
DX: E03.8 Other specified hypothyroidism (principal); E06.3 Autoimmune thyroiditis
CPT/HCPCS: 36415; 84439; 84443

== ENCOUNTER → 2024-11-12 | Outpatient (CLI) | payer BC, SELFPAY | END | disposition home or self-care (01) | LOC: BIMLAB 14:02 | PROVIDERS: PCP Internal Medicine; Referring Provider Internal Medicine Endocrinology, Diabetes & Metabolism; Visit Provider Internal Medicine Endocrinology, Diabetes & Metabolism | DX: C73 Malignant neoplasm of thyroid gland (principal); E06.3 Autoimmune thyroiditis; E03.8 Other specified hypothyroidism | CPT/HCPCS: 36415; 84439; 84443 ==